=== PATIENT | male | born 1940 | race Caucasian/White ===

== ENCOUNTER 2017-04-05 12:23 | Emergency (ER) | payer MEDICARE, MEDICAID ==
[~2017-04-05 12:23] MED LIST: ALBU6.7H INH; CLON.1 PO; IPRAAER IN; METO100T9 PO; PRED20 PO; SYMB160A INH
[2017-04-05 12:25] VITALS: BP 145/75; PULSE 72; RESP 20; TEMP 97.7; O2SAT 98
--- NOTE | 2017-04-05 13:09 | PD ---
Physical Exam Date Seen by Provider: April 05, 2017 Time Seen by Provider: 13:02 Narrative 76 y/o male presents to the ED with complaints of lower abdominal pain with some increased pain in RLQ. Pain started last night with sharp pains. Has no fever, nausea, or fever. Denies urinary symptoms. Has been constipation. Now having Diarrhea this am. Has hx Prostate enlargement. Pain now 0. Hx COPD as well. V/S Stable Awaiting Bed Placement. Data Data Last Documented VS Vital Signs Date Time Temp Pulse Resp B/P Pulse Ox O2 Delivery O2 Flow Rate FiO2 04/05/17 12:25 97.7 72 20 145/75 98 Room Air [facility] Medical Record Reviewed: Yes Supervised Visit with GEREMIAS: Yes Condition: Stable Omid Yu April 05, 2017 13:09
== END 2017-04-05 13:10 | disposition left against medical advice (07) ==
LOC: NED 12:23
DX: R10.30 Lower abdominal pain, unspecified (principal); Z53.21 Procedure and treatment not carried out due to patient leaving prior to being seen by health care provider
CPT/HCPCS: 99281; 99283

== ENCOUNTER 2017-04-15 22:07 | Inpatient (IN) | payer MEDICARE, MEDICAID ==
[~2017-04-15] VITALS: Ht 165.1 cm; Wt 62.0 kg
[2017-04-15 22:09] VITALS: BP 212/104; PULSE 75; RESP 16; TEMP 98.8; O2SAT 97
[2017-04-15 22:28] VITALS: BP 235/95; PULSE 69; RESP 16; O2SAT 100
[2017-04-15 22:45] VITALS: BP 235/95; PULSE 64; RESP 20
[2017-04-15] MEDS ORDERED: SODIUM CHLORIDE 0.9% FLUSH 10 ML FLUSH IVF PRN (22:45)
--- NOTE | 2017-04-15 22:58 | RADRPT ---
EXAM DATE/TIME: 04/15/2017 22:47 [facility] COMPARISON: CHEST SINGLE AP, November 16, 2014, 18:37. INDICATIONS : Chest pain MEDICAL HISTORY : Chronic obstructive pulmonary disease. SURGICAL HISTORY : None. ENCOUNTER: Initial ACUITY: 1 day PAIN SCORE: 3/10 LOCATION: Bilateral chest FINDINGS: A single view of the chest demonstrates the lungs to be symmetrically aerated without evidence of mas s, infiltrate or effusion. The cardiomediastinal contours are unremarkable. Osseous structures are intact. CONCLUSION: Normal examination. Mild chronic obstructive lung disease Amor Taylor MD on April 15, 2017 at 22:56 Board Certified Radiologist. This report was verified electronically.
[2017-04-15 23:03] LABS: AUTOMATED NEUTROPHIL # 6.1 TH/MM3 (1.8-7.7); BASOPHIL # 0.1 TH/MM3 (0-0.2); BASOPHIL % 1.2 % (0.0-2.0); EOSINOPHIL # 0.2 TH/MM3 (0-0.4); EOSINOPHIL % 2.2 % (0.0-4.0); HEMATOCRIT 45.1 % (39.0-51.0); HEMO FLAGS DIFF FINAL; LYMPH % 15.9 % (9.0-44.0); LYMPHOCYTE # 1.4 TH/MM3 (1.0-4.8); MEAN CELL VOLUME 84.4 FL (80.0-100.0); MEAN CORPUSCULAR HGB CONC 34.3 % (32.0-36.0); MONO % 9.8 % (0.0-8.0); NEUT % 70.9 % (16.0-70.0); PLATELET COUNT 297 TH/MM3 (150-450); RED BLOOD COUNT 5.35 MIL/MM3 (4.50-5.90); RED CELL DISTRIBUTION WIDTH 16.4 % (11.6-17.2); WHITE BLOOD COUNT 8.6 TH/MM3 (4.0-11.0)
--- NOTE | 2017-04-15 23:04 | PD ---
HPI Chief Complaint: Chest Pain Time Seen by Provider: 22:24 Travel History International Travel<30 days: No Contact w/Intl Traveler<30days: No Traveled to known affect area: No History of Present Illness HPI 76yo M with PMH of HTN, AAA s/p repair presents to the ED with c/o left sided chest pain that radiates to mid upper back. States it is sharp. Denies any fever, cough, sob, focal weakness or numbness, n/v, abdominal pain. Former smoker. PFSH Past Medical History Anxiety: Yes Depression: Yes Cardiovascular Problems: Yes (htn) COPD: Yes Diminished Hearing: No Gastrointestinal Disorders: Yes Hiatal Hernia: Yes Hypertension: Yes Inguinal Hernia: Yes (2006) Neurologic: Yes (MEMORY DEFICITS) Psychiatric: Yes Respiratory: Yes (copd) Sleep Apnea: No Past Surgical History Surgical History: No Previous Surgery Abdominal Aneurysm Repair: Yes (2002 [facility]) Abdominal Surgery: Yes (RIGHT INGUINAL HERNIA REPAIR 2006. "abdominal anerysm repair 10 yrs ago") Appendectomy: Yes Body Medical Devices: MEMORY PROBLEMS Neurologic Surgery: No Tonsillectomy: Yes Other Surgery: Yes (EXCISION OF CYSTS LEFT SHOULDER) Social History Alcohol Use: Yes (rare) Tobacco Use: Yes Substance Use: No Allergies-Medications (Allergen,Severity, Reaction): Coded Allergies: No Known Allergies (Verified , 04/20/16) Reported Meds & Prescriptions Reported Meds & Active Scripts Active Norvasc (Amlodipine Besylate) 10 Mg Tab 10 Mg PO DAILY Combivent Respimat (Albuterol/Ipratropium) Respimat Aer 1 Inhalation IN QID 30 Days Symbicort (Budesonide/Formoterol Fumarate) 160 Mcg/4.5 Mcg Aer 1 Puff INH BID * SHAKE WELL BEFORE USE * Reported Catapres 0.1 mg (Clonidine HCl) 0.1 Mg Tab 1 Tab PO BID Review of Systems Except as stated in HPI: all other systems reviewed are Neg Physical Exam Narrative GENERAL: 76yo M not in distress. SKIN: Focused skin assessment warm/dry. HEAD: Atraumatic. Normocephalic. EYES: Pupils equal and round. No scleral icterus. No injection or drainage. ENT: No nasal bleeding or discharge. Mucous membranes pink and moist. NECK: Trachea midline. No JVD. CARDIOVASCULAR: Regular rate and rhythm. No murmur appreciated. RESPIRATORY: No accessory muscle use. Clear to auscultation. Breath sounds equal bilaterally. BACK: Bilateral paraspinal ttp thoracic spine, mid lower lumbar ttp. GASTROINTESTINAL: Abdomen soft, non-tender, nondistended. MUSCULOSKELETAL: No obvious deformities. No clubbing. No cyanosis. Trace lower ext edema edema. NEUROLOGICAL: Awake and alert. No obvious cranial nerve deficits. Motor grossly within normal limits. Normal speech. PSYCHIATRIC: Appropriate mood and affect; insight and judgment normal. Data Data Last Documented VS Vital Signs Date Time Temp Pulse Resp B/P Pulse Ox O2 Delivery O2 Flow Rate FiO2 04/16/17 01:00 58 16 189/92 94 Room Air 04/15/17 22:09 98.8 Orders Electrocardiogram (04/15/17 22:37) Basic Metabolic Panel (Bmp) (04/15/17 22:37) B-Type Natriuretic Peptide (04/15/17 22:37) Ckmb (Isoenzyme) Profile (04/15/17 22:37) Complete Blood Count With Diff (04/15/17 22:37) Magnesium (Mg) (04/15/17 22:37) Prothrombin Time / Inr (Pt) (04/15/17 22:37) Act Partial Throm Time (Ptt) (04/15/17 22:37) Troponin I (04/15/17 22:37) Chest, Single Ap (04/15/17 22:37) Ecg Monitoring (04/15/17 22:37) Bilateral Bp Monitoring (04/15/17 22:37) Iv Access Insert/Monitor (04/15/17 22:37) Oximetry (04/15/17 22:37) Oxygen Administration (04/15/17 22:37) Sodium Chloride 0.9% Flush (Ns Flush) (04/15/17 22:45) I-Stat Creatinine (04/15/17 22:37) Labetalol Inj (Trandate Inj) (04/15/17 23:15) I-Stat Profile (04/15/17 22:40) Ct Thorax/ Chest Wo Iv Contras (04/15/17 ) Ct Abd/Pel W/O Iv Contrast (04/15/17 ) CKMB (04/15/17 23:40) CKMB% (04/15/17 23:40) Clonidine (Catapres) (04/16/17 00:45) Admit Order (Ed Use Only) (04/16/17 00:58) Labs Laboratory Tests Test 04/15/17 04/15/17 22:40 23:40 Prothrombin Time 10.3 SEC Prothromb Time International 0.9 RATIO Ratio Activated Partial 23.9 SEC Thromboplast Time B-Type Natriuretic Peptide 109 PG/ML White Blood Count 8.6 TH/MM3 Red Blood Count 5.35 MIL/MM3 Hemoglobin 15.5 GM/DL Hematocrit 45.1 % Mean Corpuscular Volume 84.4 FL Mean Corpuscular Hemoglobin 29.0 PG Mean Corpuscular Hemoglobin 34.3 % Concent Red Cell Distribution Width 16.4 % Platelet Count 297 TH/MM3 Mean Platelet Volume 9.2 FL Neutrophils (%) (Auto) 70.9 % Lymphocytes (%) (Auto) 15.9 % Monocytes (%) (Auto) 9.8 % Eosinophils (%) (Auto) 2.2 % Basophils (%) (Auto) 1.2 % Neutrophils # (Auto) 6.1 TH/MM3 Lymphocytes # (Auto) 1.4 TH/MM3 Monocytes # (Auto) 0.8 TH/MM3 Eosinophils # (Auto) 0.2 TH/MM3 Basophils # (Auto) 0.1 TH/MM3 CBC Comment DIFF FINAL Differential Comment Bedside Hemoglobin 15.3 G/DL Bedside Hematocrit 45.0 % Bedside Sodium 137 MMOL/L Sodium Level 138 MEQ/L Bedside Potassium 4.0 MMOL/L Potassium Level 4.0 MEQ/L Bedside Chloride 104 MMOL/L Chloride Level 102 MEQ/L Carbon Dioxide Level 26.4 MEQ/L Anion Gap 10 MEQ/L Bedside Blood Urea Nitrogen 36 MG/DL Blood Urea Nitrogen 32 MG/DL Creatinine 2.02 MG/DL Bedside Creatinine 2.0 MG/DL Estimat Glomerular Filtration 32 ML/MIN Rate Bedside Glucose 110 MG/DL Random Glucose 113 MG/DL Calcium Level 8.7 MG/DL Magnesium Level 2.0 MG/DL Total Creatine Kinase 259 U/L Creatine Kinase MB 4.1 NG/ML Troponin I LESS THAN 0.02 NG/ML Lipase 199 U/L MDM Medical Decision Making Medical Screen Exam Complete: Yes Emergency Medical Condition: Yes Interpretation(s) EKG: NSR 62bpm. Normal axis. Mild ST depression V5. Differential Diagnosis Aortic dissection vs. ACS vs. pneumonia Narrative Course 76yo M with HTN and AAA s/p repair here with chest pain radiating to back concerning for aortic dissection. I obtained an i-stat and his creatinine is 2.0. I discussed with radiologist and if we do noncontrast, we can still see dissection and leak from aorta so will do noncontrast. BP is 235/95 and labetalol 20mg IV ordered. BP improved to 167/93. However, pt's blood pressure was again in the 200s systolic and clonidine 0.1mg PO given. Labs reviewed, no leukocytosis. H/H stable. BUN/creatinine elevated at 32/2.02. Troponin negative. BNP 109. CXR normal. CTabd/pelvis showed atherosclerotic disease. No dissection. There is a fluid filled loop of distended bowel of uncertain etiology that was an incidental finding. Pt has no nausea or vomiting. Last BM yesterday. Discussed with radiologist and states that this is not something to worry about. CT chest showed no dissection. 6mm lung nodule that needs follow up study in 6 months. Informed pt of this. Discussed with Dr. Grey and accepted to her service for uncontrolled HTN and r/o chest pain. Diagnosis Primary Impression: CHEST PAIN, UNSPECIFIED Additional Impression: Uncontrolled hypertension Admitting Information Admitting Physician Requests: Observation Scripts Amlodipine (Norvasc)10 Mg Tab10 Mg PO DAILY #30 TAB Ref 0 Prov:Nannette White MD 04/16/17 Keila Hickman DO April 15, 2017 23:04
[2017-04-15] MEDS ORDERED: LABETALOL HCL 100 MG/20 ML VIAL IV PUSH ONE (23:15)
[2017-04-15 23:19] LABS: INTERNATIONAL NORMALIZED RATIO 0.9 RATIO; PROTHROMBIN TIME - PATIENT 10.3 SEC (9.8-11.6)
[2017-04-15 23:23] VITALS: BP 186/94; PULSE 61; RESP 16; O2SAT 97
[2017-04-15 23:23] LABS: APTT (PATIENT) 23.9 SEC (24.3-30.1)
[2017-04-15 23:42] VITALS: BP 167/93; PULSE 61; RESP 16; O2SAT 96
[2017-04-16] VITALS (14 sets, daily range): BP systolic 151–189; BP diastolic 72–102; PULSE 58–88; RESP 16–18; TEMP 97.7–98; O2SAT 94–99
--- NOTE | 2017-04-16 00:04 | RADRPT ---
EXAM DATE/TIME: 04/15/2017 23:28 [facility] COMPARISON: No previous studies available for comparison. INDICATIONS : Chest pain radiating to back. RADIATION DOSE: 7.95 CTDIvol (mGy) ; Combined studies - Thorax/Abdomen/Pelvis MEDICAL HISTORY : Hypertension. Aneurysm, abdominal. Chronic obstructive pulmonary disease. Hiatal hernia. SURGICAL HISTORY : Abdominal aortic aneurysm repair. ENCOUNTER: Initial ACUITY: 1 day PAIN SCALE: 8/10 LOCATION: Bilateral chest TECHNIQUE: Volumetric scanning of the chest was performed. Using automated exposure control and adjustment of t he mA and/or kV according to patient size, radiation dose was kept as low as reasonably achievable to obtain optimal diagnostic quality images. FINDINGS: LUNGS: There is no consolidation or pneumothorax. No concerning pulmonary nodule is visualized other than r ounded 6 mm nodule right mid lung. There is diffuse emphysematous change. PLEURAE: There is no pleural thickening or pleural effusion. MEDIASTINUM: The ascending aorta measures 4.1 cm across . The descending aorta is normal in caliber. There is no evidence of dissection or acute hematoma . The heart and great vessels demonstrate no acute abnormal ity. There is no mediastinal or hilar lymphadenopathy. There is dense coronary atherosclerotic disea se AXILLAE: Within normal limits. No lymphadenopathy. MUSCULOSKELETAL: Within normal limits for patient age. Multiple healed rib fractures MISCELLANEOUS: The visualized upper abdominal organs demonstrate no acute abnormality. CONCLUSION: No evidence of acute dissection or hematoma. Diffuse emphysema throughout the lungs. 6 mm lung nodule suggest followup noncontrast study in 6 months.. Amor Taylor MD on April 15, 2017 at 23:58 Board Certified Radiologist. This report was verified electronically.
--- NOTE | 2017-04-16 00:11 | RADRPT ---
EXAM DATE/TIME: 04/15/2017 23:28 This report includes an Addendum and supersedes previous reports for this exam. [facility] COMPARISON: No previous studies available for comparison. INDICATIONS : Chest pain radiating to back. ORAL CONTRAST: No oral contrast ingested. RADIATION DOSE: 7.95 CTDIvol (mGy) ; Combined studies - Thorax/Abdomen/Pelvis MEDICAL HISTORY : Hypertension. Aneurysm, abdominal. Chronic obstructive pulmonary disease.Inguinal hernia. SURGICAL HISTORY : Abdominal aortic aneurysm repair. Inguinal hernia repair.Appendectomy. ENCOUNTER: Initial ACUITY: 1 day PAIN SCALE: 8/10 LOCATION: All quadrants. TECHNIQUE: Volumetric scanning of the abdomen and pelvis was performed. Using automated exposure control and ad justment of the mA and/or kV according to patient size, radiation dose was kept as low as reasonably achievable to obtain optimal diagnostic quality images. FINDINGS: LOWER LUNGS: The visualized lower lungs are clear. LIVER: Homogeneous density with 2 lesions consist with hepatic cysts. There is no dilation of the biliary t ree. Solitary calcified gallstone in the neck of the gallbladder. SPLEEN: Spleen is surgically absent. PANCREAS: Within normal limits. KIDNEYS: Some areas of cortical thinning right kidney. There is no mass, stone, or hydronephrosis other than numerous benign cysts. ADRENAL GLANDS: Within normal limits. VASCULAR: There is marked atherosclerotic disease without evidence of acute hematoma or dissection. BOWEL/MESENTERY: The stomach, small bowel, and colon demonstrate no acute abnormality. There is no free intraperitone al air or fluid. ABDOMINAL WALL: Within normal limits. RETROPERITONEUM: There is no lymphadenopathy. BLADDER: No wall thickening or mass. REPRODUCTIVE: Within normal limits. INGUINAL: There is no lymphadenopathy or hernia. MUSCULOSKELETAL: Within normal limits for patient age. CONCLUSION: Marked atherosclerotic disease or evidence of leak of the abdominal aorta or surrounding hemorrhage. Gallstone and numerous hepatic and renal cysts. Study was performed without IV contrast due to the el evated creatinine and low GFR. In the mid abdomen there is a fluid filled loop of distended bowel of uncertain etiology but no evidence of free air or free fluid seen. Amor Taylor MD on April 16, 2017 at 0:04 Board Certified Radiologist. This report was verified electronically. ADDENDUM: There is a typographical error within the conclusion. There is "marked atherosclerotic disease and no evidence of leak of the abdominal aorta or any surrounding hemorrhage" Amor Taylor MD on April 16, 2017 at 1:02 Board Certified Radiologist. This report was verified electronically.
[2017-04-16 00:21] LABS: I-STAT SODIUM 137 MMOL/L (138-146)
[2017-04-16 00:25] LABS: ANION GAP 10 MEQ/L (5-15); BICARBONATE 26.4 MEQ/L (21.0-32.0); BLOOD UREA NITROGEN 32 MG/DL (7-18); CHLORIDE 102 MEQ/L (98-107); GLOMERULAR FILTRATION RATE 32 ML/MIN (>89); SODIUM (NA) 138 MEQ/L (136-145)
[2017-04-16 00:29] LABS: CREATINE KINASE 259 U/L (39-308)
[2017-04-16 00:42] LABS: CKMB 4.1 NG/ML (0.5-3.6)
[2017-04-16] MEDS ORDERED: cloNIDine HCL 0.1 MG TAB PO ONE (00:45)
[2017-04-16] MEDS ORDERED: SODIUM CHLORIDE 0.9% FLUSH 10 ML FLUSH IV FLUSH PRN (01:00)
[2017-04-16] MEDS ORDERED: NALOXONE HCL 0.4 MG/ML AMP IV PRN (01:00)
[2017-04-16] MEDS: hydrALAZINE HCL 20 MG/ML VIAL IV PUSH PRN ×2 (02:22→09:23)
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
[2017-04-16] MEDS ORDERED: RESP: ALBUTEROL 2.5 MG/IPRATROPIUM 0.5 MG NEB (PRN) NEB (02:45)
[2017-04-16] MEDS: RESP: ALBUTEROL 2.5 MG/IPRATROPIUM 0.5 MG NEB (SCH) NEB ×2 (02:46→09:49)
[2017-04-16] MEDS ORDERED: SODIUM CHLORIDE 0.9% FLUSH 10 ML FLUSH IV FLUSH SCH (09:00)
[2017-04-16 10:35] LABS: CREATINE KINASE 196 U/L (39-308)
--- NOTE | 2017-04-16 12:14 | RADRPT ---
EXAM DATE/TIME: 04/16/2017 10:50 [facility] COMPARISON: No previous studies available for comparison. INDICATIONS : Abdominal pain. MEDICAL HISTORY : Chronic obstructive pulmonary disease. CVA. Hypertension. Abdominal aortic aneurysm. Hiatal herni a. Depression. Anxiety. SURGICAL HISTORY : Tonsillectomy. Appendectomy. Abdominal aortic aneurysm repair. Right inguinal hernia. ENCOUNTER: Initial ACUITY: 1 day PAIN SCORE: 6/10 LOCATION: Bilateral upper quadrant MEASUREMENTS: LIVER: 14.8 cm length COMMON DUCT: 5 mm RIGHT KIDNEY: 10.9 x 4.2 x 5.5 cm LEFT KIDNEY: 11.5 x 4.4 x 5.5 cm SPLEEN: not visualized. AORTA: 5.2cm maximal FINDINGS: Multiple hepatic cysts noted measuring up to 5.2 cm and 1.9 cm in the right lobe. Pancreas unremarkab le. 8mm gallstone present in gallbladder. Mild sonographic Pete's sign. No significant gallbladder wall thickening. Bilateral renal cysts present measuring up to 1.5 cm upper pole right kidney and 1.6 cm upper pole le ft kidney. No hydronephrosis. Kidneys mildly atrophic. Spleen not visualized. Distal abdominal aortic aneurysm measures up to about 3 cm in diameter and extending over a length of about 5 cm. CONCLUSION: 1. Multiple gallstones with mild tenderness over the right upper quadrant. No biliary ductal dilatati on. 2. Multiple hepatic and bilateral renal cysts. 3. 3 cm infrarenal abdominal aortic aneurysm. 4. Spleen absent. Berhane Hathaway MD on April 16, 2017 at 12:07 Board Certified Radiologist. This report was verified electronically.
[2017-04-16 14:11] LABS: CREATINE KINASE 187 U/L (39-308)
[2017-04-16] MEDS ORDERED: AMLO10 PO (14:25)
--- NOTE | 2017-04-16 14:27 | HHI.DS ---
Discharge Summary Admission Date April 16, 2017 at 02:03 Discharge Date: April 16, 2017 Admitting Diagnosis Chest pain (1) Atypical chest pain ICD Code: R07.89 Diagnosis: Principal (2) SOB (shortness of breath) ICD Code: R06.02 Diagnosis: Principal (3) History of AAA (abdominal aortic aneurysm) repair ICD Code: Z98.89 Diagnosis: Secondary (4) Abdominal pain ICD Code: R10.9 Diagnosis: Secondary (5) Headache ICD Code: R51 Diagnosis: Secondary (6) Lung mass ICD Code: R91.8 Diagnosis: Principal Procedures none Brief History - From Admission Written by Sandra Vicente, acting as scribe for Dr. Grey on 04/16/17 at 02: 30. This is a 76-year-old male patient with past medical history which includes HTN , COPD, CVA residual difficulty speaking, BPH, aortic aneurysm s/p repair 2001. Patient is currently homeless and living on the street for the past 3 days has multiple complaints and reports he has not been feeling well for a few weeks. Patient reports he has had midsternal chest pain described as both sharp and pressure-like in sensation, "like someone is sitting on my chest," for the past 2-3 days. Patient reports the chest pain is worse with coughing or palpation of chest. Patient reports the chest pain does not seem to be affected by exertion. Chest pain radiates through to the middle of the back. Patient has also had a cough for 2 weeks productive of yellow phlegm. He denies diaphoresis or night sweats. Patient also reports vomiting 2-3 times a day for the past 2 days possible coffee color patient reports he is unsure. Hemoglobin 15.5 on arrival with repeat of 15.3. Patient noted to be SOB even at rest is unable to talk in complete sentences due to his SOB. Patient also c/o diarrhea x 2 weeks, reports diarrhea about 3 times per day. Patient denies black tarry appearance or bright red blood in stool. Prior to the diarrhea patient was constipated. Patient denies headache, dysuria, hematuria CBC/BMP: 04/15/17 22404/15/17 2340 Significant Findings Laboratory Tests Test 04/15/17 04/15/17 04/16/17 04/16/17 22:40 23:40 09:32 13:30 Activated Partial 23.9 SEC Thromboplast Time (24.3-30.1) B-Type Natriuretic Peptide 109 PG/ML (0-100) Neutrophils (%) (Auto) 70.9 % (16.0-70.0) Monocytes (%) (Auto) 9.8 % (0.0-8.0) Bedside Sodium 137 MMOL/L (138-146) Bedside Blood Urea Nitrogen 36 MG/DL (8-26) Blood Urea Nitrogen 32 MG/DL (7-18) Creatinine 2.02 MG/DL (0.60-1.30) Bedside Creatinine 2.0 MG/DL (0.8-1.3) Estimat Glomerular Filtration 32 ML/MIN (>89) Rate Bedside Glucose 110 MG/DL (60-95) Random Glucose 113 MG/DL (74-106) Creatine Kinase MB 4.1 NG/ML (0.5-3.6) Troponin I LESS THAN 0.02 LESS THAN 0.02 LESS THAN 0.02 NG/ML NG/ML NG/ML (0.02-0.05) (0.02-0.05) (0.02-0.05) Imaging Last Impressions Abdomen Ultrasound 04/16/17 0000 Signed Impressions: Service Date/Time: Sunday, April 16, 2017 10:50 - CONCLUSION: 1. Multiple gallstones with mild tenderness over the right upper quadrant. No biliary ductal dilatation. 2. Multiple hepatic and bilateral renal cysts. 3. 3 cm infrarenal abdominal aortic aneurysm. 4. Spleen absent. Berhane Hathaway MD Chest X-Ray 04/15/172236 Signed Impressions: Service Date/Time: March 22:47 - CONCLUSION: Normal examination. Mild chronic obstructive lung disease Amor Taylor MD Chest CT 04/15/17 0000 Signed Impressions: Service Date/Time: March 23:28 - CONCLUSION: No evidence of acute dissection or hematoma. Diffuse emphysema throughout the lungs. 6 mm lung nodule suggest followup noncontrast study in 6 months.. Amor Taylor MD Abdomen/Pelvis CT 04/15/17 0000 Signed Impressions: Service Date/Time: March 23:28 - CONCLUSION: Marked atherosclerotic disease or evidence of leak of the abdominal aorta or surrounding hemorrhage. Gallstone and numerous hepatic and renal cysts. Study was performed without IV contrast due to the elevated creatinine and low GFR. In the mid abdomen there is a fluid filled loop of distended bowel of uncertain etiology but no evidence of free air or free fluid seen. Amor Taylor MD ADDENDUM: There is a typographical error within the conclusion. There is marked atherosclerotic disease and no evidence of leak of the abdominal aorta or any surrounding hemorrhage Amor Taylor MD PE at Discharge GENERAL:in NAD SKIN: Warm and dry. HEAD: Normocephalic. EYES: No scleral icterus. No injection or drainage. NECK: Supple, trachea midline. No JVD or lymphadenopathy. CARDIOVASCULAR: Regular rate and rhythm without murmurs, gallops, or rubs. RESPIRATORY: Breath sounds equal bilaterally. No accessory muscle use. GASTROINTESTINAL: Abdomen soft, mild RUQ pain to palpation. nondistended. normoactive BS. no peritoneal. NEURO: AAO X 3. CN 2-12 intact. 5/5 upper and lower ext strength. coordination intact and gait intact. sensation grossly intact. Pt update on day of discharge patient asking to eat and stated he is very hungry,. He was given lunch quickly and had no N/V or abdominal pain with PO intake. Patient stated still RUQ . Patient then stated he had a Headache and wanted medication. He stated ZELAYA is posterior and he had this ZELAYA before. Denied any visual changes, focal neurological deficit or N/V with ZELAYA. chest pain resolved. patient also stated he was homeless and will not get his money which is 1900 a month until the first. he stated he has nowhere to go and that the homeless retirement only give 1 day free but then after that its 10 dollars a day. patient asked to stay. Hospital Course This is a 76-year-old male patient with past medical history which includes HTN , COPD, CVA residual difficulty speaking, BPH, aortic aneurysm s/p repair 2001. Patient is currently homeless and living on the street for the past 3 days has multiple complaints and reports he has not been feeling well for a few weeks. Midsternal chest pain with radiation to the back. cough productive of yellow phlegm, vomiting, SOB even at rest is unable to talk in complete sentences due to his SOB, diarrhea x 2 weeks. Hypertensive urgency this is his baseline. he was given clonidine, IV hydralazine, IV Labetalol improved. continue with home clonidine and will add amlodipine. most likely probably uncontrol HTN due to compliance not hypertensive urgency. Chest pain- atypical with history of AAA repair and radiation to the back CXR reviewed and reveals: Normal examination. Mild chronic obstructive lung disease CT abdomen reviewed and reveals: (Addendum marked atherosclerotic disease and no evidence of leak of the abdominal aorta or any surrounding hemorrhage.) Gallstone with numerous hepatic and renal cysts. In the mid abdomen there was a fluid filled loop of distended bowel of uncertain etiology but no evidence of free air or free fluid seen CT chest reviewed and reveals:No evidence of acute dissection or hematoma. Diffuse emphysema throughout the lungs. 6 mm lung nodule suggest followup noncontrast study in 6 months Recommend followup noncontrast study in 6 months Initial EKG revels: NSR 62bpm. ST depression V5. troponin negative and symptoms resolved quickly, no events on telemetry. Lung nodule -patient educated on lung nodule and told he will need a repeat CT scan by his PCP. he stated okay that he will get that done at the [facility]. abdominal pain CT abdomen reviewed and reveals: (Addendum marked atherosclerotic disease and no evidence of leak of the abdominal aorta or any surrounding hemorrhage.) Gallstone with numerous hepatic and renal cysts. In the mid abdomen there was a fluid filled loop of distended bowel of uncertain etiology but no evidence of free air or free fluid seen US showed gallstone initially had NV but that resolved quickly. patient tolerated a regular diet easily. no signs of infection and relative asymptomatic. able to tolerate PO intake so no indication for surgery. COPD with productive cough and SOB duonebs scheduled and as needed Diarrhea patient c/o diarrhea but no diarrhea while hospitalized. Pt Condition on Discharge: Good Discharge Disposition: Discharge Home Discharge Time: <= 30 minutes Discharge Instructions DIET: Follow Instructions for: Heart Healthy Diet Activities you can perform: Regular-No Restrictions Follow up Referrals: PCP Follow-up - 1 Week New Medications: Amlodipine (Norvasc) 10 Mg Tab 10 MG PO DAILY hypertension #30 Ref 0 TAB Continued Medications: Budesonide-Formoterol Fumarate (Symbicort) 160 Mcg/4.5 Mcg Aer 1 PUFF INH BID * SHAKE WELL BEFORE USE * #1 BOX Clonidine 0.1 mg (Catapres 0.1 mg) 0.1 Mg Tab 1 TAB PO BID TAB Ipratropium-Albuterol (Combivent Respimat) Respimat Aer 1 INHALATION IN QID Days 30 AER Nannette White MD April 16, 2017 14:27
--- NOTE | 2017-04-16 14:27 | HHI.DCPOC ---
Discharge Care Plan Diagnosis: (1) Uncontrolled hypertension (2) Atypical chest pain Goals to Promote Your Health * To prevent worsening of your condition and complications * To maintain your health at the optimal level Directions to Meet Your Goals Take your medications as prescribed Follow your dietary instruction Follow activity as directed Keep your appointments as scheduled Take your immunizations and boosters as scheduled If your symptoms worsen call your PCP, if no PCP go to Urgent Care Center or Emergency Room Smoking is Dangerous to Your Health. Avoid second hand smoke Call the 24-hour hour crisis hotline for domestic abuse at Nannette White MD April 16, 2017 14:27
[2017-04-16] MEDS ORDERED: ACETAMINOPHEN 325 MG TAB PO PRN (14:45)
--- NOTE | 2017-04-16 15:55 | EKG ---
Date Performed: 04/15/2017 Time Performed: 22:53:09 PTAGE: 76 years EKG: Sinus rhythm Left ventricular hypertrophy NONSPECIFIC T-WAVE ABNORMALITY When compared to previous tracing, bailey es of LVH are present And nonspecific. T wave changes are noted in the inferior leads. ABNORMAL ECG PREVIOUS TRACING : 06/18/2015 22.16.18 DOCTOR: Taz Desir Interpretating Date/Time 04/16/2017 15:54:15
--- NOTE | 2017-04-17 16:25 | EKG ---
Date Performed: 04/16/2017 Time Performed: 07:16:40 PTAGE: 76 years EKG: Sinus rhythm Anterolateral ST-T changes are nonspecific Compared to prior tracing 04/15/2017 the QRS voltage sligh tly left anterolaterally,but still increased. Borderline ECG PREVIOUS TRACING : 04/15/2017 22.53 DOCTOR: Rolly Quintero Interpretating Date/Time 04/17/2017 16:24:01
== END 2017-04-16 15:25 | disposition home or self-care (01) | DRG 313 ==
LOC: NEPE 22:07 → NEDA 04-16 01:00 → OBSVTOIN 04-16 02:03 → HCIN 04-16 03:25 → HCIS 04-16 04:16
PROVIDERS: ADMIT Family Medicine; ATTEND Family Medicine
DX: R07.89 Other chest pain (principal); K76.89 Other specified diseases of liver; J44.9 Chronic obstructive pulmonary disease, unspecified; I16.0 Hypertensive urgency; I69.328 Other speech and language deficits following cerebral infarction; I10 Essential (primary) hypertension; F41.9 Anxiety disorder, unspecified; F32.9 Major depressive disorder, single episode, unspecified; K44.9 Diaphragmatic hernia without obstruction or gangrene; R91.1 Solitary pulmonary nodule; Z59.0 Homelessness; R19.7 Diarrhea, unspecified; N40.0 Benign prostatic hyperplasia without lower urinary tract symptoms; F17.210 Nicotine dependence, cigarettes, uncomplicated; K80.20 Calculus of gallbladder without cholecystitis without obstruction; N28.1 Cyst of kidney, acquired; Z86.79 Personal history of other diseases of the circulatory system; R51 Headache
CPT/HCPCS: 71010; 71250; 74176; 76700; 80048; 82435; 82550; 82552; 82565; 82947; 83690; 83735; 83880; 84132; 84295; 84484; 84520; 85025; 85610; 85730; 93005; 94640; 94664; 96374; J0360

== ENCOUNTER 2017-04-20 23:12 | Emergency (ER) | payer OTHER, MEDICARE, MEDICAID ==
[~2017-04-20] VITALS: Ht 172.7 cm; Wt 58.2 kg
[~2017-04-20 23:12] MED LIST changes: -ALBU6.7H INH; +AMLO10 PO; -METO100T9 PO; -PRED20 PO
[2017-04-20 23:16] VITALS: BP 150/87; PULSE 73; RESP 16; TEMP 98.2; O2SAT 99
[2017-04-20] MEDS ORDERED: TAMS5CAP PO (23:22)
[2017-04-20] MEDS ORDERED: SYMB80AE INH (23:22)
[2017-04-20] MEDS ORDERED: CLON0.1T PO (23:22)
[2017-04-20] MEDS ORDERED: SODIUM CHLORIDE 0.9% FLUSH 10 ML FLUSH IVF PRN (23:45)
--- NOTE | 2017-04-21 00:12 | PD ---
HPI Chief Complaint: Respiratory Symptoms Time Seen by Provider: 23:38 Travel History International Travel<30 days: No Contact w/Intl Traveler<30days: No Traveled to known affect area: No History of Present Illness HPI The patient is a 76 year old male who presents to the [facility] emergency department with a history of shortness of breath with chest tightness that began at 7PM this evening. He reports that he has a history of COPD. He reports that he tried using a Symbicort inhaler, however it did not help. He denies having a rescue inhaler. He reports also having pain between his shoulder blades with this chest tightness. He continues to smoke 1 ppd. He has had vomiting with coughing hard occasionally. He has also had diarrhea for the last two weeks approximately one time a day that is watery and dark brown. It resolved during his recent admission to the hospital through April 16. However, his symptoms of diarrhea recurred when he left the hospital. He is drinking two shots of alcohol 3 times per week. On my arrival to the room the patient is noted to be sleeping soundly. The patient was awakened provide this history. The patient denies any recent fevers, worsening cough or congestion, neck pain, urinary symptoms, or neurologic symptoms. [facility] Past Medical History Narrative Medical The patient's past medical history is significant for depression and anxiety, AAA- repaired, hypertension, COPD, 2 CVAs with residual weakness reported in his arms, BPH. Anxiety: Yes Depression: Yes Cancer: No Cardiovascular Problems: Yes (htn) Chest Pain: Yes (THIS ADMISSION CHEST AND BACK) COPD: Yes Cerebrovascular Accident: Yes ("TWO MINOR STROKES") Diminished Hearing: No Endocrine: No Gastrointestinal Disorders: Yes Hiatal Hernia: Yes Hypertension: Yes Immune Disorder: No Inguinal Hernia: Yes (2006) Neurologic: Yes (MEMORY DEFICITS) Psychiatric: Yes Reproductive: No Respiratory: Yes (copd) Sleep Apnea: No Past Surgical History Narrative Surgical The patient's past surgical history is significant for AAA, hernia repair. Abdominal Aneurysm Repair: Yes ([facility]) Abdominal Surgery: Yes (RIGHT INGUINAL HERNIA REPAIR 2006. "abdominal anerysm repair 10 yrs ago") Appendectomy: Yes Body Medical Devices: MEMORY PROBLEMS Neurologic Surgery: No Tonsillectomy: Yes Other Surgery: Yes (EXCISION OF CYSTS LEFT SHOULDER) Social History Alcohol Use: Yes (2 shots 3 x per week) Tobacco Use: Yes (1 ppd) Substance Use: No Allergies-Medications (Allergen,Severity, Reaction): Coded Allergies: No Known Allergies (Verified , 04/20/17) Reported Meds & Prescriptions Reported Meds & Active Scripts Active Prednisone 20 Mg Tab 20 Mg PO BID Proair Respiclick Inh (Albuterol Sulfate) 90 Mcg/Act Aerp 2 Puff INH Q4-6H PRN Norvasc (Amlodipine Besylate) 10 Mg Tab 10 Mg PO DAILY Reported Flomax (Tamsulosin HCl) 0.4 Mg Cap 0.4 Mg PO HS Symbicort Inh (Budesonide/Formoterol Fumarate) 80-4.5 Mcg/Act Aero 2 Puff INH Q12HR Clonidine (Clonidine HCl) 0.1 Mg Tab 0.1 Mg PO BID Review of Systems Except as stated in HPI: all other systems reviewed are Neg General / Constitutional: No: Fever Eyes: No: Visual changes HENT: No: Headaches, Neck Stiffness, Neck Pain Cardiovascular: Positive: Chest Pain or Discomfort Respiratory: Positive: Shortness of Breath Gastrointestinal: Positive: Diarrhea, Changes in Bowel Habits, No: Nausea, Vomiting, Abdominal Pain, Indigestion, Loss of Appetite Genitourinary: No: Dysuria Musculoskeletal: No: Pain Skin: No Rash Neurologic: No: Weakness, Focal Abnormalities, Change in Mentation, Slurred Speech, Sensory Disturbance Psychiatric: No: Depression Endocrine: No: Polydipsia Hematologic/Lymphatic: No: Easy Bruising Physical Exam Narrative General: The patient is well-developed well-nourished male in no acute distress. Head and Neck exam: Head is normocephalic atraumatic. Eyes: EOMI, pupils are equal round and reactive to light. Nose: Midline septum with pink mucous membranes Mouth: Dentition unremarkable. Moist mucus membranes. Posterior oropharynx is not erythematous. No tonsillar hypertrophy. Uvula midline. Airway patent. Neck: No palpable lymphadenopathy. No nuchal rigidity. No thyromegaly. Cardiovascular: Regular rate and rhythm without murmurs, gallops, or rubs. No pulse deficit to the extremities. Lungs: Soft expiratory wheezes audible posteriorly. No prolonged expiratory phase of breathing. No tripoding, no accessory muscle use. No paroxysmal abdominal breathing. No conversational dyspnea. Abdomen: Soft, without tenderness to palpation in all 4 quadrants of the abdomen. No guarding, rebound, or rigidity. Normal bowel sounds are audible. Extremities: No clubbing, cyanosis, or edema. 2+ pulses in all 4 extremities. No calf tenderness on palpation. Back: No costovertebral angle tenderness to palpation. Neurologic Exam: Grossly nonfocal. Skin Exam: No rash noted. Intact skin that is warm and dry. Data Data Last Documented VS Vital Signs Date Time Temp Pulse Resp B/P Pulse Ox O2 Delivery O2 Flow Rate FiO2 04/21/17 03:06 93 179/90 04/21/17 02:36 99 Room Air 04/20/17 23:16 98.2 16 Orders Electrocardiogram (04/20/17 23:40) Complete Blood Count With Diff (04/20/17 23:40) Comprehensive Metabolic Panel (04/20/17 23:40) Creatine Kinase (Cpk) (04/20/17 23:40) Ckmb (Isoenzyme) Profile (04/20/17 23:40) Troponin I (04/20/17 23:40) B-Type Natriuretic Peptide (04/20/17 23:40) Prothrombin Time / Inr (Pt) (04/20/17 23:40) Act Partial Throm Time (Ptt) (04/20/17 23:40) Lipase (04/20/17 23:40) Urinalysis - C+S If Indicated (04/20/17 23:40) Magnesium (Mg) (04/20/17 23:40) Chest, Single Ap (04/20/17 23:40) Ecg Monitoring (04/20/17 23:40) Bilateral Bp Monitoring (04/20/17 23:40) Iv Access Insert/Monitor (04/20/17 23:40) Oximetry (04/20/17 23:40) Oxygen Administration (04/20/17 23:40) Sodium Chloride 0.9% Flush (Ns Flush) (04/20/17 23:45) Albuterol-Ipratropium Neb (Duoneb Neb) (04/21/17 00:15) Sodium Chlorid 0.9% 500 Ml Inj (Ns 500 M (04/21/17 00:15) CKMB (04/20/17 23:50) CKMB% (04/20/17 23:50) Labs Laboratory Tests Test 04/20/17 04/21/17 23:50 01:55 White Blood Count 9.4 TH/MM3 Red Blood Count 4.78 MIL/MM3 Hemoglobin 13.3 GM/DL Hematocrit 41.2 % Mean Corpuscular Volume 86.2 FL Mean Corpuscular Hemoglobin 27.9 PG Mean Corpuscular Hemoglobin 32.4 % Concent Red Cell Distribution Width 16.4 % Platelet Count 237 TH/MM3 Mean Platelet Volume 9.0 FL Neutrophils (%) (Auto) 71.1 % Lymphocytes (%) (Auto) 13.3 % Monocytes (%) (Auto) 10.8 % Eosinophils (%) (Auto) 2.6 % Basophils (%) (Auto) 2.2 % Neutrophils # (Auto) 6.7 TH/MM3 Lymphocytes # (Auto) 1.3 TH/MM3 Monocytes # (Auto) 1.0 TH/MM3 Eosinophils # (Auto) 0.2 TH/MM3 Basophils # (Auto) 0.2 TH/MM3 CBC Comment DIFF FINAL Differential Comment Prothrombin Time 10.2 SEC Prothromb Time International 0.9 RATIO Ratio Activated Partial 28.7 SEC Thromboplast Time Sodium Level 135 MEQ/L Potassium Level 4.2 MEQ/L Chloride Level 101 MEQ/L Carbon Dioxide Level 23.7 MEQ/L Anion Gap 10 MEQ/L Blood Urea Nitrogen 29 MG/DL Creatinine 1.87 MG/DL Estimat Glomerular Filtration 35 ML/MIN Rate Random Glucose 91 MG/DL Calcium Level 8.5 MG/DL Magnesium Level 2.0 MG/DL Total Bilirubin 0.4 MG/DL Aspartate Amino Transf 25 U/L (AST/SGOT) Alanine Aminotransferase 16 U/L (ALT/SGPT) Alkaline Phosphatase 93 U/L Total Creatine Kinase 215 U/L Creatine Kinase MB 3.6 NG/ML Troponin I LESS THAN 0.02 NG/ML B-Type Natriuretic Peptide 34 PG/ML Total Protein 6.4 GM/DL Albumin 3.0 GM/DL Lipase 212 U/L Urine Color YELLOW Urine Turbidity CLEAR Urine pH 5.5 Urine Specific [place] 1.008 Urine Protein 100 mg/dL Urine Glucose (UA) NEG mg/dL Urine Ketones NEG mg/dL Urine Occult Blood SMALL Urine Nitrite NEG Urine Bilirubin NEG Urine Urobilinogen LESS THAN 2.0 MG/DL Urine Leukocyte Esterase NEG Urine RBC LESS THAN 1 /hpf Urine WBC 1 /hpf Urine Bacteria RARE /hpf Urine Mucus FEW /lpf Microscopic Urinalysis Comment CULT NOT INDICATED MDM Medical Decision Making Medical Screen Exam Complete: Yes Emergency Medical Condition: Yes Medical Record Reviewed: Yes Differential Diagnosis COPD exacerbation, versus pneumothorax, versus pneumonia, versus acute coronary syndrome Narrative Course During the course of the patients emergency department visit, the patients history, examination, and differential diagnosis were reviewed with the patient. The patient had IV access obtained and blood work sent for analysis. The patient was placed on a cardiac monitor technician with oximetry and blood pressure monitoring. The patient had an EKG done on arrival. The patient's EKG reveals sinus rhythm heart rate of 66, borderline left axis deviation, QRS duration is 98 ms, QTC 440 ms. The patient has nonspecific T-wave abnormalities. No acute ST segment elevation. T waves are noted to be inverted in aVL. The patient was initially provided normal saline bolus of 500 mL 1, a DuoNeb 1. The patients laboratory studies were reviewed and remarkable for a white count of 9.4, hemoglobin 13.3, platelets 237 with 71.1 neutrophils, monocytes 10.8, CMP is remarkable for sodium of 135, BUN 29, creatinine 1.87, CPK 215, troponin I less than 0.02, BNP is 34, lipase 212, PT PTT within normal limits. Urinalysis shows 100 protein, small occult blood, rare bacteria, culture not indicated. Radiology studies were reviewed and remarkable for a chest x-ray that showed no acute abnormality, emphysematous changes are noted. The patient reports that he does not have a rescue inhaler. The patient was given a prescription for pro-air inhaler. The patient was also given a prescription for prednisone. Regarding the patient's abdominal pain and diarrhea, the patient had a CT scan of the abdomen and pelvis done during his recent hospitalization that showed no acute abnormality. I suspect that the diarrhea is dietary related as a result in the hospital and then recurred once he was discharged. The patient is resting comfortably and feels better, is alert and in no distress. The patients results and examination findings were discussed with the patient. The repeat examination is unremarkable and benign. The history, exam, diagnostic testing, and current condition do not suggest any significant pathology to warrant further testing, continued ED treatment, admission, or surgical evaluation at this point. The vital signs have been stable. The patient does not have uncontrollable pain, intractable vomiting, or other significant symptoms. The patient's condition is stable and appropriate for discharge. The patient will pursue further outpatient evaluation with a primary care physician or other designated or consulting physician as indicated in the discharge instructions. The patient expressed understanding and was agreeable with this plan. Diagnosis Primary Impression: COPD with exacerbation Additional Impression: Diarrhea Qualified Code: R19.7 - Diarrhea, unspecified type Referrals: Primary Care Physician 2 days Patient Instructions: COPD (Chronic Obstructive Pulmonary Disease) (ED), General Instructions Additional Instructions: Avoid alcohol and tobacco products. Med/Other Pt SpecificInfo: Prescription(s) given Scripts Prednisone 20 Mg Tab20 Mg PO BID #10 TAB Ref 0 Prov:Opal Gomez MD 04/21/17 Albuterol Powder Inh (Proair Respiclick Inh)90 Mcg/Act Aerp2 Puff INH Q4-6H PRN (SHORTNESS OF BREATH) #1 INHALER Ref 0 Prov:Opal Gomez MD 04/21/17 Disposition: 01 DISCHARGE HOME Condition: Stable Opal Gomez MD April 21, 2017 00:12
[2017-04-21] MEDS ORDERED: SODIUM CHLORID 0.9% 500 ML INJ 500 ML IV ONE (00:15)
[2017-04-21] MEDS ORDERED: ALBU1AER5 INH (00:15)
[2017-04-21] MEDS ORDERED: RESP: ALBUTEROL 2.5 MG/IPRATROPIUM 0.5 MG NEB (SCH) NEB ONE (00:15)
[2017-04-21 00:24] LABS: AUTOMATED NEUTROPHIL # 6.7 TH/MM3 (1.8-7.7); BASOPHIL # 0.2 TH/MM3 (0-0.2); BASOPHIL % 2.2 % (0.0-2.0); EOSINOPHIL # 0.2 TH/MM3 (0-0.4); EOSINOPHIL % 2.6 % (0.0-4.0); HEMATOCRIT 41.2 % (39.0-51.0); HEMO FLAGS DIFF FINAL; LYMPH % 13.3 % (9.0-44.0); LYMPHOCYTE # 1.3 TH/MM3 (1.0-4.8); MEAN CELL VOLUME 86.2 FL (80.0-100.0); MEAN CORPUSCULAR HEMOGLOBIN 27.9 PG (27.0-34.0); MEAN CORPUSCULAR HGB CONC 32.4 % (32.0-36.0); MONO % 10.8 % (0.0-8.0); NEUT % 71.1 % (16.0-70.0); PLATELET COUNT 237 TH/MM3 (150-450); RED BLOOD COUNT 4.78 MIL/MM3 (4.50-5.90); RED CELL DISTRIBUTION WIDTH 16.4 % (11.6-17.2); WHITE BLOOD COUNT 9.4 TH/MM3 (4.0-11.0)
[2017-04-21 00:37] LABS: APTT (PATIENT) 28.7 SEC (24.3-30.1); INTERNATIONAL NORMALIZED RATIO 0.9 RATIO; PROTHROMBIN TIME - PATIENT 10.2 SEC (9.8-11.6)
[2017-04-21 00:45] LABS: ALKALINE PHOSPHATASE 93 U/L (45-117); ALT (GPT) 16 U/L (12-78); ANION GAP 10 MEQ/L (5-15); AST (GOT) 25 U/L (15-37); BICARBONATE 23.7 MEQ/L (21.0-32.0); BLOOD UREA NITROGEN 29 MG/DL (7-18); CHLORIDE 101 MEQ/L (98-107); CREATINE KINASE 215 U/L (39-308); GLOMERULAR FILTRATION RATE 35 ML/MIN (>89); SODIUM (NA) 135 MEQ/L (136-145); TOTAL BILIRUBIN ADULT 0.4 MG/DL (0.2-1.0)
[2017-04-21 01:32] LABS: POTASSIUM 4.2 MEQ/L (3.5-5.1)
[2017-04-21 02:07] LABS: BACTERIA, URINE RARE /hpf; BLOOD, URINE SMALL (NEG); COMMENT (UR) CULT NOT INDICATED; CULTURE IF INDICATED CULT NOT INDICATED; GLUCOSE,URINE NEG (NEG); KETONE, URINE NEG (NEG); MUCUS URINE FEW /lpf (OCC); NITRITE,URINE NEG (NEG); PH, URINE 5.5 (5.0-8.5); URINE COLOR YELLOW (YELLW/STRAW)
[2017-04-21 02:11] LABS: CKMB 3.6 NG/ML (0.5-3.6)
[2017-04-21] MEDS ORDERED: PRED20 PO (02:30)
[2017-04-21 03:06] VITALS: BP 179/90; PULSE 93
--- NOTE | 2017-04-21 08:25 | RADRPT ---
EXAM DATE/TIME: 04/21/2017 00:03 [facility] COMPARISON: CHEST SINGLE AP, November 16, 2014, 18:37. CHEST SINGLE AP, April 15, 2017, 22:47. INDICATIONS : Chest pain. MEDICAL HISTORY : Hypertension. Aneurysm, abdominal. Chronic obstructive pulmonary disease.Inguinal hernia SURGICAL HISTORY : Abdominal aortic aneurysm repair. Inguinal hernia repair.Appendectomy ENCOUNTER: Initial ACUITY: 1 day PAIN SCORE: 7/10 LOCATION: Bilateral chest FINDINGS: Lungs are hyperinflated but focally clear. No pleural effusion is suspected. Cardiac contours are sta ble and satisfactory for technique and projection. CONCLUSION: Emphysema. No acute disease. Jimbo Perkins MD on April 21, 2017 at 0:10 Board Certified Radiologist. This report was verified electronically.
--- NOTE | 2017-04-21 09:07 | EKG ---
Date Performed: 04/20/2017 Time Performed: 23:24:16 PTAGE: 76 years EKG: Sinus rhythm BORDERLINE LEFT AXIS DEVIATION MODERATE VOLTAGE CRITERIA FOR LVH, CONSIDER NORMAL VARIANT NONSPECIFI C T-WAVE ABNORMALITY BORDERLINE ECG PREVIOUS TRACING : 04/16/2017 07.16 DOCTOR: Amor Schuler Interpretating Date/Time 04/21/2017 09:06:44
== END 2017-04-21 03:12 | disposition home or self-care (01) ==
LOC: NEPE 23:12
DX: J44.1 Chronic obstructive pulmonary disease with (acute) exacerbation (principal); R19.7 Diarrhea, unspecified; R07.89 Other chest pain; M54.6 Pain in thoracic spine; R11.10 Vomiting, unspecified; R94.31 Abnormal electrocardiogram [ECG] [EKG]; I10 Essential (primary) hypertension; F17.200 Nicotine dependence, unspecified, uncomplicated; Z86.79 Personal history of other diseases of the circulatory system; Z86.59 Personal history of other mental and behavioral disorders; Z87.09 Personal history of other diseases of the respiratory system; Z87.19 Personal history of other diseases of the digestive system; Z86.69 Personal history of other diseases of the nervous system and sense organs
CPT/HCPCS: 71010; 80053; 81001; 82550; 82552; 83690; 83735; 83880; 84484; 85025; 85610; 85730; 93005; 94664; 96360; 99285; J7040

== ENCOUNTER 2017-05-10 14:42 | Emergency (ER) | payer OTHER, MEDICARE, MEDICAID ==
[~2017-05-10] VITALS: Ht 175.3 cm; Wt 60.0 kg
[~2017-05-10 14:42] MED LIST changes: +ALBU1AER5 INH; -CLON.1 PO; +CLON0.1T PO; -IPRAAER IN; +PRED20 PO; -SYMB160A INH; +SYMB80AE INH; +TAMS5CAP PO
[2017-05-10 14:44] VITALS: BP 182/98; PULSE 77; RESP 24; TEMP 97.6; O2SAT 98
--- NOTE | 2017-05-10 16:19 | PD ---
HPI Chief Complaint: Respiratory Symptoms Time Seen by Provider: 16:14 Travel History International Travel<30 days: No Contact w/Intl Traveler<30days: No Traveled to known affect area: No History of Present Illness HPI 76-year-old male with long history of smoking and COPD. Patient presents with 3 day history of increasing shortness of breath, and productive cough with brown phlegm. Patient uses Symbicort, but has no nebulizer at home or metered-dose inhaler. Patient states he has had prednisone in the past for his lungs. States no significant chills or fever but states he "doesn't feel very well". He denies chest pain or pressure. He denies significant abdominal complaints. He has no known drug allergies. PFSH Past Medical History Anxiety: Yes Depression: Yes Cancer: No Cardiovascular Problems: Yes (htn) Chest Pain: Yes (THIS ADMISSION CHEST AND BACK) COPD: Yes Cerebrovascular Accident: Yes Diminished Hearing: No Endocrine: No Gastrointestinal Disorders: Yes Hiatal Hernia: Yes Hypertension: Yes Immune Disorder: No Inguinal Hernia: Yes (2006) Neurologic: Yes (MEMORY DEFICITS) Psychiatric: Yes Reproductive: No Respiratory: Yes Sleep Apnea: No Past Surgical History Abdominal Aneurysm Repair: Yes (2002 [facility]) Abdominal Surgery: Yes (RIGHT INGUINAL HERNIA REPAIR 2006. "abdominal anerysm repair 10 yrs ago") Appendectomy: Yes Body Medical Devices: MEMORY PROBLEMS Neurologic Surgery: No Tonsillectomy: Yes Other Surgery: Yes (EXCISION OF CYSTS LEFT SHOULDER) Social History Alcohol Use: Yes (2 shots 3 x per week) Tobacco Use: Yes (1 ppd) Substance Use: No Allergies-Medications (Allergen,Severity, Reaction): Coded Allergies: No Known Allergies (Verified , 05/10/17) Reported Meds & Prescriptions Reported Meds & Active Scripts Active Prednisone 20 Mg Tab 20 Mg PO BID Norvasc (Amlodipine Besylate) 10 Mg Tab 10 Mg PO DAILY Reported Symbicort Inh (Budesonide/Formoterol Fumarate) 80-4.5 Mcg/Act Aero 2 Puff INH Q12HR Clonidine (Clonidine HCl) 0.1 Mg Tab 0.1 Mg PO BID Review of Systems Except as stated in HPI: all other systems reviewed are Neg General / Constitutional: No: Fever, Chills Eyes: No: Visual changes HENT: No: Headaches, Vertigo, Lightheadedness, Sore Throat, Rhinitis, Rhinorrhea, Congestion, Nosebleed, Neck Stiffness, Neck Pain, Masses, Gingival Bleeding, Dental Difficulties, Ear Discharge, Earache Cardiovascular: No: Chest Pain or Discomfort Respiratory: Positive: Cough, Shortness of Breath, Wheezing, No: Sneezing, Orthopnea, Hemoptysis, Stridor, Night Sweats, Pleuritic Pain Gastrointestinal: No: Nausea, Vomiting, Diarrhea, Abdominal Pain Genitourinary: No: Dysuria Musculoskeletal: No: Pain Skin: No Rash Neurologic: No: Weakness Psychiatric: No: Depression Endocrine: No: Polydipsia Hematologic/Lymphatic: No: Easy Bruising Physical Exam Narrative GENERAL: Patient appears in no acute distress. Able to speak in full sentences. SKIN: Warm and dry. Normal color. Normal turgor. HEAD: Atraumatic. Normocephalic. EYES: Pupils equal and round. No scleral icterus. No injection or drainage. ENT: No nasal bleeding or discharge. Mucous membranes pink and moist. TMs are clear bilaterally. Pharynx appears normal. Airway is patent. NECK: Trachea midline. No JVD. Supple nontender. CARDIOVASCULAR: Regular rate and rhythm. No murmurs gallops or rubs. RESPIRATORY: No accessory muscle use. Diffuse wheezes throughout to auscultation. No rales or rhonchi. Breath sounds equal bilaterally. MUSCULOSKELETAL: Extremities without clubbing, cyanosis, or edema. No obvious deformities. NEUROLOGICAL: Awake and alert. No obvious cranial nerve deficits. Motor grossly within normal limits. Five out of 5 muscle strength in the arms and legs. Normal speech. PSYCHIATRIC: Appropriate mood and affect; insight and judgment normal. Data Data Last Documented VS Vital Signs Date Time Temp Pulse Resp B/P Pulse Ox O2 Delivery O2 Flow Rate FiO2 05/10/17 17:54 85 16 193/107 95 Room Air 05/10/17 14:44 97.6 Orders Complete Blood Count With Diff (05/10/17 16:20) Comprehensive Metabolic Panel (05/10/17 16:20) Urinalysis - C+S If Indicated (05/10/17 16:20) Iv Access Insert/Monitor (05/10/17 16:20) Electrocardiogram (05/10/17 16:20) Ecg Monitoring (05/10/17 16:20) Oximetry (05/10/17 16:20) Oxygen Administration (05/10/17 16:20) Chest, Pa & Lat (05/10/17 16:20) Sodium Chloride 0.9% Flush (Ns Flush) (05/10/17 16:30) Albuterol-Ipratropium Neb (Duoneb Neb) (05/10/17 16:30) Prednisone (Deltasone) (05/10/17 16:30) Clonidine (Catapres) (05/10/17 17:30) Sodium Chlorid 0.9% 500 Ml Inj (Ns 500 M (05/10/17 18:15) Ceftriaxone Inj (Rocephin Inj) (05/10/17 18:06) Azithromycin Inj (Zithromax Inj) (05/10/17 18:06) Labs Laboratory Tests Test 05/10/17 17:08 White Blood Count 5.9 TH/MM3 Red Blood Count 5.48 MIL/MM3 Hemoglobin 15.2 GM/DL Hematocrit 47.4 % Mean Corpuscular Volume 86.6 FL Mean Corpuscular Hemoglobin 27.7 PG Mean Corpuscular Hemoglobin 32.0 % Concent Red Cell Distribution Width 16.2 % Platelet Count 327 TH/MM3 Mean Platelet Volume 8.8 FL Neutrophils (%) (Auto) 84.8 % Lymphocytes (%) (Auto) 10.3 % Monocytes (%) (Auto) 4.4 % Eosinophils (%) (Auto) 0.0 % Basophils (%) (Auto) 0.5 % Neutrophils # (Auto) 5.0 TH/MM3 Lymphocytes # (Auto) 0.6 TH/MM3 Monocytes # (Auto) 0.3 TH/MM3 Eosinophils # (Auto) 0.0 TH/MM3 Basophils # (Auto) 0.0 TH/MM3 CBC Comment DIFF FINAL Differential Comment Sodium Level 138 MEQ/L Potassium Level 4.4 MEQ/L Chloride Level 102 MEQ/L Carbon Dioxide Level 25.5 MEQ/L Anion Gap 11 MEQ/L Blood Urea Nitrogen 40 MG/DL Creatinine 2.50 MG/DL Estimat Glomerular Filtration 25 ML/MIN Rate Random Glucose 129 MG/DL Calcium Level 9.2 MG/DL Total Bilirubin 0.4 MG/DL Aspartate Amino Transf 14 U/L (AST/SGOT) Alanine Aminotransferase 16 U/L (ALT/SGPT) Alkaline Phosphatase 121 U/L Total Protein 7.8 GM/DL Albumin 3.6 GM/DL [facility] Medical Decision Making Medical Screen Exam Complete: Yes Emergency Medical Condition: Yes Medical Record Reviewed: Yes Differential Diagnosis Pneumonia. COPD with acute exacerbation. Lung cancer. Narrative Course Patient is medically stable at time of exam. EKG is ordered showing sinus rhythm with moderate T wave abnormality. This is suggestive of lateral ischemia. Chest x-ray is ordered as well. Labs ordered including CBC, CMP, and urinalysis.. Patient is given a DuoNeb 3. Patient is given prednisone 60 mg by mouth. Patient is noted to have mild hypertension and he is given his clonidine dose of 0.1 mg by mouth. Patient states improvement in respiratory symptoms after his DuoNeb and prednisone. CBC is unremarkable. CMP is remarkable for increased creatinine of 2.5 which is up from 1.8 previously 3 weeks ago. BUN is 40. Otherwise no significant findings. Urinalysis is still pending at this time. Call is placed for the hospitalist for admission due to the patient's increased creatinine. IV access was not able to be obtained. Patient was discussed with Dr. Manzanares who agreed to admit the patient to OBS 1825 hrs. patient requests to leave AMA. Diagnosis Primary Impression: COPD with exacerbation Additional Impressions: Uncontrolled hypertension Acute renal insufficiency Disposition: 07 AGAINST MEDICAL ADVICE Condition: Stable Omid Yu May 10, 2017 16:19 Admitting Physician Requests: Observation Condition: Stable Omid Yu May 10, 2017 16:19
[2017-05-10] MEDS: RESP: ALBUTEROL 2.5 MG/IPRATROPIUM 0.5 MG NEB (SCH) INH (16:29)
[2017-05-10] MEDS ORDERED: predniSONE 20 MG TAB PO ONE (16:30)
[2017-05-10] MEDS ORDERED: SODIUM CHLORIDE 0.9% FLUSH 10 ML FLUSH IVF PRN (16:30)
[2017-05-10 17:15] VITALS: BP 197/94; PULSE 79; RESP 16; O2SAT 97
[2017-05-10] MEDS ORDERED: cloNIDine HCL 0.1 MG TAB PO ONE (17:30)
[2017-05-10 17:42] LABS: BASOPHIL % 0.5 % (0.0-2.0); HEMATOCRIT 47.4 % (39.0-51.0); HEMO FLAGS DIFF FINAL; LYMPH % 10.3 % (9.0-44.0); LYMPHOCYTE # 0.6 TH/MM3 (1.0-4.8); MEAN CELL VOLUME 86.6 FL (80.0-100.0); MEAN CORPUSCULAR HEMOGLOBIN 27.7 PG (27.0-34.0); MONO % 4.4 % (0.0-8.0); NEUT % 84.8 % (16.0-70.0); PLATELET COUNT 327 TH/MM3 (150-450); RED BLOOD COUNT 5.48 MIL/MM3 (4.50-5.90); RED CELL DISTRIBUTION WIDTH 16.2 % (11.6-17.2); WHITE BLOOD COUNT 5.9 TH/MM3 (4.0-11.0)
[2017-05-10 17:54] VITALS: BP 193/107; PULSE 85; RESP 16; O2SAT 95
[2017-05-10 17:57] LABS: ANION GAP 11 MEQ/L (5-15); AST (GOT) 14 U/L (15-37); BICARBONATE 25.5 MEQ/L (21.0-32.0); BLOOD UREA NITROGEN 40 MG/DL (7-18); CHLORIDE 102 MEQ/L (98-107); GLOMERULAR FILTRATION RATE 25 ML/MIN (>89); POTASSIUM 4.4 MEQ/L (3.5-5.1); SODIUM (NA) 138 MEQ/L (136-145)
--- NOTE | 2017-05-10 18:00 | RADRPT ---
EXAM DATE/TIME: 05/10/2017 16:57 [facility] COMPARISON: CHEST PA & LAT, October 15, 2014, 5:11. INDICATIONS : Congestion and shortness of breath. MEDICAL HISTORY : Chronic obstructive pulmonary disease. SURGICAL HISTORY : Abdominal aortic aneurysm repair. ENCOUNTER: Initial ACUITY: 3 days PAIN SCORE: 0/10 LOCATION: Bilateral chest FINDINGS: The heart size is normal. The lungs are hyperinflated. No focal consolidation is seen. No effusion is seen. The bones appear somewhat osteopenic. CONCLUSION: Hyperinflated lungs consistent with chronic obstructive disease. Jimbo Bass MD on May 10, 2017 at 17:45 Board Certified Radiologist. This report was verified electronically.
[2017-05-10 18:01] LABS: ALKALINE PHOSPHATASE 121 U/L (45-117); ALT (GPT) 16 U/L (12-78); TOTAL BILIRUBIN ADULT 0.4 MG/DL (0.2-1.0)
[2017-05-10] MEDS ORDERED: AZITHROMYCIN INJ 500 MG in SODIUM CHLOR 0.9% 250 ML INJ 250 ML IV STA (18:06)
[2017-05-10] MEDS ORDERED: cefTRIAXone INJ 1,000 MG in SODIUM CHLORIDE 0.9% INJ 100 ML IV STA (18:06)
[2017-05-10] MEDS ORDERED: SODIUM CHLORID 0.9% 500 ML INJ 500 ML IV ONE (18:15)
[2017-05-10] MEDS ORDERED: SODIUM CHLOR 0.9% 1000 ML INJ 1,000 ML IV SCH (18:20)
--- NOTE | 2017-05-10 18:29 | HHI.PR ---
Addendum to Inpatient Note Additional Information I was called to admit Mr. Rehman for COPD exacerbation. I just placed all the admission orders and discussed with ED provider. However, before patient was seen by our service, patient decided to leave AMA. Discussed with ED provider. If patient changes his mind, we are available to help. Shahzad Manzanares DO May 10, 2017 18:29
[2017-05-10] MEDS ORDERED: ACETAMINOPHEN 325 MG TAB PO PRN (18:30)
[2017-05-10] MEDS ORDERED: BISACODYL 10 MG SUPP RECTAL PRN (18:30)
[2017-05-10] MEDS ORDERED: ONDANSETRON HCL 4 MG/2 ML VIAL IVP PRN (18:30)
[2017-05-10] MEDS ORDERED: SENNOSIDES 8.6 MG TAB PO PRN (18:30)
[2017-05-10] MEDS ORDERED: SODIUM CHLORIDE 0.9% FLUSH 10 ML FLUSH IV FLUSH PRN (18:30)
[2017-05-10] MEDS ORDERED: LACTULOSE SYRUP 20 GM/30 ML CUP PO PRN (18:30)
[2017-05-10] MEDS ORDERED: HEPARIN SODIUM - SQ 10,000 UNITS/ML VIAL SQ SCH (18:30)
[2017-05-10] MEDS ORDERED: MAGNESIUM HYDROXIDE SUSP 30 ML CUP PO PRN (18:30)
[2017-05-10] MEDS ORDERED: LEVOFLOXACIN 750 MG TAB PO ONE (18:30)
[2017-05-10] MEDS ORDERED: NALOXONE HCL 0.4 MG/ML AMP IV PRN (18:30)
[2017-05-10] MEDS ORDERED: RESP: ALBUTEROL 2.5 MG/IPRATROPIUM 0.5 MG NEB (PRN) NEB (18:30)
[2017-05-10] MEDS ORDERED: LEVOFLOXACIN 750 MG TAB PO SCH (18:30)
[2017-05-10] MEDS ORDERED: RESP: ALBUTEROL 2.5 MG/IPRATROPIUM 0.5 MG NEB (SCH) NEB (20:00)
[2017-05-10] MEDS ORDERED: BUDESONIDE-FORMOTEROL 160/4.5 MCG INHALER INH SCH (21:00)
[2017-05-10] MEDS ORDERED: DOCUSATE SODIUM 50 MG/SENNA 8.6 MG TAB PO SCH (21:00)
[2017-05-10] MEDS ORDERED: SODIUM CHLORIDE 0.9% FLUSH 10 ML FLUSH IV FLUSH SCH (21:00)
[2017-05-11] MEDS ORDERED: predniSONE 50 MG TAB PO SCH (09:00)
--- NOTE | 2017-05-11 16:47 | EKG ---
Date Performed: 05/10/2017 Time Performed: 17:18:28 PTAGE: 76 years EKG: Sinus rhythm VOLTAGE CRITERIA FOR LVH MODERATE T-WAVE ABNORMALITY, CONSIDER LATERAL ISCHEMIA Since previous adan ng, no significant change noted ABNORMAL ECG PREVIOUS TRACING : 04/20/2017 23.24 DOCTOR: Lori Patel Interpretating Date/Time 05/11/2017 17:22:41
== END 2017-05-10 18:40 | disposition left against medical advice (07) ==
LOC: NEPD 14:42
DX: J44.1 Chronic obstructive pulmonary disease with (acute) exacerbation (principal); J45.901 Unspecified asthma with (acute) exacerbation; I10 Essential (primary) hypertension; N28.9 Disorder of kidney and ureter, unspecified; F17.210 Nicotine dependence, cigarettes, uncomplicated; R94.31 Abnormal electrocardiogram [ECG] [EKG]
CPT/HCPCS: 71020; 80053; 85025; 93005; 94640; 94664; 99285; J7512

== ENCOUNTER 2017-05-10 19:43 | Observation (INO) | payer OTHER, MEDICARE, MEDICAID ==
[~2017-05-10] VITALS: Ht 175.3 cm; Wt 60.0 kg
[2017-05-10 19:45] VITALS: BP 192/97; PULSE 95; RESP 16; TEMP 98.5; O2SAT 96
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
[2017-05-10 22:00] VITALS: BP 147/79; PULSE 89; RESP 16; O2SAT 96
[2017-05-10] MEDS ORDERED: SODIUM CHLOR 0.9% 1000 ML INJ 1,000 ML IV ONE (22:00)
[2017-05-10] MEDS: RESP: ALBUTEROL 2.5 MG/3 ML NEB (SCH) INH (22:09)
[2017-05-10] MEDS ORDERED: NALOXONE HCL 0.4 MG/ML AMP IV PRN (23:00)
[2017-05-10] MEDS ORDERED: SODIUM CHLORIDE 0.9% FLUSH 10 ML FLUSH IV FLUSH PRN (23:00)
[2017-05-10] MEDS ORDERED: RESP: ALBUTEROL 2.5 MG/IPRATROPIUM 0.5 MG NEB (PRN) NEB (23:15)
[2017-05-10 23:20] VITALS: O2SAT 97
[2017-05-11 01:00] VITALS: BP 152/81; PULSE 86; RESP 17; O2SAT 95
[2017-05-11 02:35] VITALS: BP 178/90; PULSE 78; RESP 18; TEMP 98.4; O2SAT 98
[2017-05-11 04:21] VITALS: BP 151/68; PULSE 65; PULSE 66; RESP 16; TEMP 98.1; O2SAT 94
[2017-05-11] MEDS: RESP: ALBUTEROL 2.5 MG/IPRATROPIUM 0.5 MG NEB (SCH) NEB ×2 (07:40→14:00)
[2017-05-11 07:46] VITALS: O2SAT 98
--- NOTE | 2017-05-11 08:45 | HHI.HP ---
[facility] Service [facility] Primary Care Physician [facility] Admission Diagnosis copd exacerbation, acute renal insufficiency Diagnoses: Chief Complaint: coughing Travel History International Travel<30 Days: No Contact w/Intl Traveler <30 Da: No Traveled to Known Affected Are: No History of Present Illness Written by RODNEY Summers acting as scribe for [Mariann] on 05/11/17 at 08: 40. This note was transcribed by scribe RODNEY Summers. I, Dr. Yarely Waite personally performed the history, physical exam, and medical decision making; and confirmed the accuracy of the information in the transcribed note. Authenticated by Dr. Yarely Waite on 05/11/17 at 08:40. 76 y/o male with a history of COPD, HTN, Depression and anxiety presented to the ED with complaints of shortness of breath. He has been out of his COPD Meds for 1 week. He has been having increased sob, and productive cough with brown phlegm for the past week. 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 Denies any fever, chills, chest pain, or nausea. He was seen yesterday in the ED at 17:30 but he signed out AMA, because he wanted to smoke. He returned at 22:00. Chest x ray showed hyperinflated lungs consistent with chronic obstructive disease. Review of Systems Constitutional: DENIES: Fever, Chills Respiratory: COMPLAINS OF: Cough, Sputum production, Shortness of breath Cardiovascular: DENIES: Chest pain, Lower Extremity Edema Gastrointestinal: DENIES: Constipation, Diarrhea, Nausea, Vomiting Musculoskeletal: DENIES: Back pain, Neck pain Integumentary: DENIES: Rash Hematologic/lymphatic: DENIES: Lymphadenopathy Immunologic/allergic: DENIES: Urticaria Neurologic: DENIES: Headache Past Family Social History Past Medical History COPD HTN Depression Anxiety Past Surgical History Inguinal hernia repair AAA repair Reported Medications Reported Meds & Active Scripts Active Prednisone 20 Mg Tab 20 Mg PO BID Norvasc (Amlodipine Besylate) 10 Mg Tab 10 Mg PO DAILY Reported Symbicort Inh (Budesonide/Formoterol Fumarate) 80-4.5 Mcg/Act Aero 2 Puff INH Q12HR Clonidine (Clonidine HCl) 0.1 Mg Tab 0.1 Mg PO BID Allergies: Coded Allergies: No Known Allergies (Verified , 05/10/17) Active Ordered Medications Current Medications Medications (Trade) Dose Ordered Sig/Tawana Route Start Time Stop Time Status Last Admin (NS Flush) 2 ml UNSCH PRN IV FLUSH 05/10/17 23:00 (NS Flush) 2 ml BID IV FLUSH 05/11/17 09:00 (Narcan Inj) 0.4 mg UNSCH PRN IV 05/10/17 23:00 (Norvasc) 10 mg DAILY PO 05/11/17 09:00 (Symbicort 80-4.5 Mcg Inh) 2 puff Q12HR INH 05/11/17 09:00 (Catapres) 0.1 mg BID PO 05/11/17 09:00 Family History Dad: cancer, unsure what kind Social History Tobacco use: 1 PPD since age 14 Alcohol use: 1/2 pint a week of vodka Illicit drug use: Denies Physical Exam Vital Signs Vital Signs Date Time Temp Pulse Resp B/P Pulse Ox O2 Delivery O2 Flow Rate FiO2 05/11/17 07:46 98 21 05/11/17 04:21 65 05/11/17 04:21 98.1 66 16 151/68 94 05/11/17 02:35 98.4 78 18 178/90 98 05/11/17 01:00 86 17 152/81 95 05/10/17 23:20 97 05/10/17 22:00 89 16 147/79 96 05/10/17 20:09 16 05/10/17 19:45 98.5 95 16 192/97 96 Physical Exam GENERAL: This is a well-nourished, Patient with productive cough. SKIN: No rashes, ecchymoses or lesions. Cool and dry. HEAD: Atraumatic. Normocephalic. EYES: Pupils equal round and reactive. Extraocular motions intact. No scleral icterus. No injection or drainage. ENT: Nose without bleeding, purulent drainage or septal hematoma. Airway patent. NECK: Trachea midline. No JVD or lymphadenopathy. CARDIOVASCULAR: Regular rate and rhythm without murmurs, gallops, or rubs. RESPIRATORY: Diminished breath sounds bilaterally. No wheezes, rales, or rhonchi. GASTROINTESTINAL: Abdomen soft, non-tender, nondistended. No hepato-splenomegaly , or palpable masses. No guarding. MUSCULOSKELETAL: Extremities without clubbing, cyanosis, or edema. No joint tenderness, effusion, or edema noted. No calf tenderness. NEUROLOGICAL: Awake and alert. Motor and sensory grossly within normal limits. Normal speech. Assessment and Plan Problem List: (1) COPD with exacerbation ICD Code: J44.1 Status: Acute (2) Tobacco abuse ICD Code: Z72.0 Status: Chronic (3) HTN (hypertension) ICD Code: I10 Status: Chronic (4) Acute renal insufficiency ICD Code: N28.9 Status: Acute Assessment and Plan 76 y/o male with a history of COPD, HTN, Depression and anxiety presented to the ED with complaints of shortness of breath. He has been out of his COPD Meds for 1 week. COPD with exacerbation Chest x ray shows hyperinflation with chronic obstructive disease -Cont home medication Symbicort -Duonebs scheduled and prn AIDE on CKD, creatine 2.5, baseline 1.8, suspect mild dehydration -1L bolus given in ED -BMP pending -Encourage fluids, will order IVF if needed HTN, chronic -Restart home medications Norvasc -Monitor vitals Tobacco abuse, chronic -Encouraged to quit -Patient denies nicotine patch because he states it doesn't work -Ativan PO for anxiety DVT prophylaxis: Heparin Discussed Condition With Patient and RN Raiza Feldman May 11, 2017 08:44 Yarely Waite MD May 11, 2017 11:16
[2017-05-11] MEDS ORDERED: cloNIDine HCL 0.1 MG TAB PO SCH (09:00)
[2017-05-11] MEDS ORDERED: SODIUM CHLORIDE 0.9% FLUSH 10 ML FLUSH IV FLUSH SCH (09:00)
[2017-05-11] MEDS ORDERED: BUDESONIDE-FORMOTEROL 80/4.5 MCG INHALER INH SCH (09:00)
[2017-05-11] MEDS ORDERED: ONDANSETRON HCL 4 MG/2 ML VIAL IVP PRN (09:30)
[2017-05-11] MEDS ORDERED: HEPARIN SODIUM - SQ 10,000 UNITS/ML VIAL SQ SCH (09:30)
[2017-05-11] MEDS ORDERED: LORazepam 0.5 MG TAB PO PRN (09:30)
[2017-05-11] MEDS ORDERED: BISACODYL 10 MG SUPP RECTAL PRN (09:30)
[2017-05-11] MEDS ORDERED: SENNOSIDES 8.6 MG TAB PO PRN (09:30)
== END 2017-05-11 15:12 | disposition left against medical advice (07) ==
LOC: NEPE 19:43 → NEDA 22:57 → NEPHCDU 05-11 01:21
PROVIDERS: ADMIT Hospitalist; ATTEND Hospitalist
DX: J44.1 Chronic obstructive pulmonary disease with (acute) exacerbation (principal); I12.9 Hypertensive chronic kidney disease with stage 1 through stage 4 chronic kidney disease, or unspecified chronic kidney disease; N18.9 Chronic kidney disease, unspecified; N28.9 Disorder of kidney and ureter, unspecified; F41.9 Anxiety disorder, unspecified; F32.9 Major depressive disorder, single episode, unspecified; F17.200 Nicotine dependence, unspecified, uncomplicated; Z86.73 Personal history of transient ischemic attack (TIA), and cerebral infarction without residual deficits; Z86.79 Personal history of other diseases of the circulatory system; Z79.51 Long term (current) use of inhaled steroids
CPT/HCPCS: 94640; 94664; 99285; G0378; J7030; J7613

== ENCOUNTER 2017-06-08 14:41 | Emergency (ER) | payer OTHER, MEDICARE, MEDICAID ==
[~2017-06-08] VITALS: Ht 175.3 cm; Wt 60.0 kg
[~2017-06-08 14:41] MED LIST changes: -ALBU1AER5 INH; -TAMS5CAP PO
[2017-06-08 14:42] VITALS: BP 179/95; PULSE 82; TEMP 98.5; O2SAT 97
[2017-06-08] MEDS ORDERED: VENTAER INH (16:46)
[2017-06-08] MEDS ORDERED: SYMB80AE INH (16:46)
--- NOTE | 2017-06-08 16:46 | PD ---
HPI Chief Complaint: medication refill Time Seen by Provider: 16:24 Travel History International Travel<30 days: No Contact w/Intl Traveler<30days: No Traveled to known affect area: No History of Present Illness HPI 76yo M with PMH of COPD presents to the ED with request of refill for his symbicort. States that he has been using his symbicort when he feels sob and when he went back to the [place], they wont refill his medication. Denies any current sob, chest pain, fever, n/v, abdominal pain, urinary complaints, weakness or numbness. PFSH Past Medical History Asthma: Yes ("A LITTLE" PER PT) Blood Disorders: No Anxiety: Yes Depression: Yes Cancer: No Cardiovascular Problems: Yes (htn) Chemotherapy: No Chest Pain: Yes (THIS ADMISSION CHEST AND BACK) COPD: Yes Cerebrovascular Accident: Yes Diabetes: No Diminished Hearing: No Endocrine: No Gastrointestinal Disorders: Yes Genitourinary: No Hiatal Hernia: Yes Hypertension: Yes Immune Disorder: No Inguinal Hernia: Yes (2006) Neurologic: Yes (MEMORY DEFICITS) Psychiatric: Yes Reproductive: No Respiratory: Yes Radiation Therapy: No Sleep Apnea: No Tetanus Vaccination: < 5 Years Influenza Vaccination: Yes Past Surgical History Abdominal Aneurysm Repair: Yes (2002 [facility]) Abdominal Surgery: Yes (RIGHT INGUINAL HERNIA REPAIR 2006. "abdominal anerysm repair 10 yrs ago") Appendectomy: Yes Body Medical Devices: MEMORY PROBLEMS Neurologic Surgery: No Tonsillectomy: Yes Other Surgery: Yes (EXCISION OF CYSTS LEFT SHOULDER, [facility] 2001) Social History Alcohol Use: Yes (2 shots 3 x per week) Tobacco Use: Yes (1 ppd) Substance Use: No Allergies-Medications (Allergen,Severity, Reaction): Coded Allergies: No Known Allergies (Verified , 06/08/17) Reported Meds & Prescriptions Reported Meds & Active Scripts Active Reported Symbicort Inh (Budesonide/Formoterol Fumarate) 80-4.5 Mcg/Act Aero 2 Puff INH Q12HR Clonidine (Clonidine HCl) 0.1 Mg Tab 0.1 Mg PO BID Review of Systems Except as stated in HPI: all other systems reviewed are Neg Physical Exam Narrative GENERAL: 76yo M not in distress. SKIN: Focused skin assessment warm/dry. HEAD: Atraumatic. Normocephalic. CARDIOVASCULAR: Regular rate and rhythm. No murmur appreciated. RESPIRATORY: No accessory muscle use. Clear to auscultation. Breath sounds equal bilaterally. GASTROINTESTINAL: Abdomen soft, +TTP RUQ. No rebound tenderness or guarding. MUSCULOSKELETAL: No obvious deformities. No clubbing. No cyanosis. No edema. NEUROLOGICAL: Awake and alert. No obvious cranial nerve deficits. Motor grossly within normal limits. Normal speech. PSYCHIATRIC: Appropriate mood and affect; insight and judgment normal. Data Data Last Documented VS Vital Signs Date Time Temp Pulse Resp B/P Pulse Ox O2 Delivery O2 Flow Rate FiO2 06/08/17 16:33 54 18 99 Room Air 06/08/17 14:42 98.5 179/95 MDM Medical Decision Making Medical Screen Exam Complete: Yes Emergency Medical Condition: Yes Differential Diagnosis Chronic COPD vs. cholecystitis vs. colitis vs. pancreatitis Narrative Course 76yo M presents to the ED requesting refill for his symbicort. Pt has been using it as an rescue inhaler and it has ran out. Pt has been educated on the proper use of symbicort in the ED and will be provided with an addition prescription for ventolin. Pt is not wheezing and saturating at 99% on RA. Pt appears comfortable but has distinct tenderness on abdominal exam. Pt is refusing all blood work or further imaging or work up for this abdominal pain and he states he always has this and it's not that bad. AMA: The risks of leaving against medical advice without further evaluation treatment were discussed with the patient. These risks include cardiac dysfunction, cardiac dysrhythmia, possible heart attack, possible stroke or . The patient indicated understanding of these risks and appeared to have the capacity to make this decision. Diagnosis Primary Impression: COPD (chronic obstructive pulmonary disease) Qualified Code: J44.9 - Chronic obstructive pulmonary disease, unspecified COPD type Patient Instructions: General Instructions Departure Forms: Tests/Procedures Additional Instructions: Please follow up with your PMD in 1-2 days. Return to the ED immediately if your symptoms worsen. Med/Other Pt SpecificInfo: Prescription(s) given Scripts Albuterol 18 GM Inh (Ventolin Hfa 18 GM Inh)90 Mcg/Act Aer2 Puff INH Q4H PRN ( SHORTNESS OF BREATH) #1 INHALER Ref 0 Prov:Keila Hickman DO 06/08/17 Budesonide-Formoterol Inh (Symbicort Inh)80-4.5 Mcg/Act Aero2 Puff INH Q12HR # 1 INHALER Ref 0 Prov:Keila Hickman DO 06/08/17 Disposition: 07 AGAINST MEDICAL ADVICE Condition: Stable Keila Hickman DO Jun 08, 2017 16:46
== END 2017-06-08 17:30 | disposition left against medical advice (07) ==
LOC: NEPD 14:41
DX: J44.9 Chronic obstructive pulmonary disease, unspecified (principal); R10.11 Right upper quadrant pain; I10 Essential (primary) hypertension; F17.200 Nicotine dependence, unspecified, uncomplicated; Z87.09 Personal history of other diseases of the respiratory system; Z86.59 Personal history of other mental and behavioral disorders; Z86.79 Personal history of other diseases of the circulatory system; Z87.19 Personal history of other diseases of the digestive system; Z86.69 Personal history of other diseases of the nervous system and sense organs; Z53.29 Procedure and treatment not carried out because of patient's decision for other reasons
CPT/HCPCS: 99281

== ENCOUNTER 2017-06-18 17:21 | Emergency (ER) | payer OTHER, MEDICARE, MEDICAID ==
[~2017-06-18] VITALS: Ht 175.3 cm; Wt 60.5 kg
[~2017-06-18 17:21] MED LIST changes: -AMLO10 PO; -PRED20 PO; +VENTAER INH
[2017-06-18 17:24] VITALS: BP 215/106; PULSE 82; RESP 24; TEMP 98.5; O2SAT 95
--- NOTE | 2017-06-18 17:34 | PD ---
Physical Exam Date Seen by Provider: Jun 18, 2017 Time Seen by Provider: 17:32 Narrative 76 yo male that presents to the ED for evaluation of SOB and cough. Has had this for some time. History of COPD and was seen recently for COPD exacerbation. Not better. Cough is severe and productive. No pain. No recent travel. No sick contacts. Vitals are stable in triage. Awaiting bed placement. Data Data Last Documented VS Vital Signs Date Time Temp Pulse Resp B/P Pulse Ox O2 Delivery O2 Flow Rate FiO2 06/18/17 17:24 98.5 82 24 215/106 95 Room Air [facility] Medical Record Reviewed: Yes Supervised Visit with GEREMIAS: Anthony Castillo Jun 18, 2017 17:34
[2017-06-18] MEDS ORDERED: SODIUM CHLORIDE 0.9% FLUSH 10 ML FLUSH IVF PRN (18:00)
[2017-06-18] MEDS ORDERED: methylPREDNISolone SOD SUCC 125 MG/2 ML VIAL IVP ONE (18:00)
--- NOTE | 2017-06-18 18:02 | PD ---
HPI Chief Complaint: Respiratory Symptoms Time Seen by Provider: 17:59 Travel History International Travel<30 days: No Contact w/Intl Traveler<30days: No Traveled to known affect area: No History of Present Illness HPI 76-year-old male presents to the emergency department for evaluation of worsening shortness of breath over the past 2 days with productive cough. He reports chest pain with coughing. He denies any fevers. Patient denies any abdominal pain. No nausea, vomiting, diarrhea. Patient does have history of COPD, hypertension. He states he is not on oxygen at home. He is currently on Symbicort, clonidine, albuterol inhaler. Patient denies any recent surgery or travel. No history DVT or PE. No hemoptysis. No leg edema. Patient is a current tobacco user. PFSH Past Medical History Asthma: Yes ("A LITTLE" PER PT) Blood Disorders: No Anxiety: Yes Depression: Yes Cancer: No Cardiovascular Problems: Yes Chemotherapy: No Chest Pain: Yes (THIS ADMISSION CHEST AND BACK) COPD: Yes Cerebrovascular Accident: Yes Diabetes: No Diminished Hearing: No Endocrine: No Gastrointestinal Disorders: Yes Genitourinary: No Hiatal Hernia: Yes Hypertension: Yes Immune Disorder: No Inguinal Hernia: Yes (2006) Neurologic: Yes (MEMORY DEFICITS) Psychiatric: Yes Reproductive: No Respiratory: Yes Radiation Therapy: No Sleep Apnea: No Past Surgical History Abdominal Aneurysm Repair: Yes (2002 [facility]) Abdominal Surgery: Yes (RIGHT INGUINAL HERNIA REPAIR 2006. "abdominal anerysm repair 10 yrs ago") Appendectomy: Yes Body Medical Devices: MEMORY PROBLEMS Neurologic Surgery: No Tonsillectomy: Yes Other Surgery: Yes (EXCISION OF CYSTS LEFT SHOULDER, AAA 2001) Social History Alcohol Use: Yes (2 shots 3 x per week) Tobacco Use: Yes (1 ppd) Substance Use: No Allergies-Medications (Allergen,Severity, Reaction): Coded Allergies: No Known Allergies (Verified , 06/18/17) Reported Meds & Prescriptions Reported Meds & Active Scripts Active Ventolin Hfa 18 GM Inh (Albuterol Sulfate) 90 Mcg/Act Aer 2 Puff INH Q4H PRN Symbicort Inh (Budesonide/Formoterol Fumarate) 80-4.5 Mcg/Act Aero 2 Puff INH Q12HR Reported Clonidine (Clonidine HCl) 0.1 Mg Tab 0.1 Mg PO BID Review of Systems Except as stated in HPI: all other systems reviewed are Neg Physical Exam Narrative GENERAL: Well-nourished, well-developed elderly male patient, afebrile. SKIN: Focused skin assessment warm/dry. HEAD: Normocephalic. EYES: No scleral icterus. No injection or drainage. NECK: Supple, trachea midline. No JVD or lymphadenopathy. CARDIOVASCULAR: Regular rate and rhythm without murmurs, gallops, or rubs. RESPIRATORY: Breath sounds equal bilaterally. No accessory muscle use. Lungs sounds diminished throughout. Dry cough noted. GASTROINTESTINAL: Abdomen soft, non-tender, nondistended. MUSCULOSKELETAL: No cyanosis, or edema. BACK: Nontender without obvious deformity. No CVA tenderness. Data Data Last Documented VS Vital Signs Date Time Temp Pulse Resp B/P Pulse Ox O2 Delivery O2 Flow Rate FiO2 06/18/17 19:21 81 20 165/88 94 Room Air 06/18/17 17:24 98.5 Orders Complete Blood Count With Diff (06/18/17 17:58) Basic Metabolic Panel (Bmp) (06/18/17 17:58) B-Type Natriuretic Peptide (06/18/17 17:58) Act Partial Throm Time (Ptt) (06/18/17 17:58) Prothrombin Time / Inr (Pt) (06/18/17 17:58) Magnesium (Mg) (06/18/17 17:58) Ckmb (Isoenzyme) Profile (06/18/17 17:58) Troponin I (06/18/17 17:58) Iv Access Insert/Monitor (06/18/17 17:58) Electrocardiogram (06/18/17 17:58) Ecg Monitoring (06/18/17 17:58) Oximetry (06/18/17 17:58) Oxygen Administration (06/18/17 17:58) Chest, Single Ap (06/18/17 17:58) Sodium Chloride 0.9% Flush (Ns Flush) (06/18/17 18:00) Methylprednisolone So Succ Inj (Solumedr (06/18/17 18:00) Albuterol-Ipratropium Neb (Duoneb Neb) (06/18/17 18:00) CKMB (06/18/17 18:15) CKMB% (06/18/17 18:15) Labs Laboratory Tests Test 06/18/17 18:15 White Blood Count 9.7 TH/MM3 Red Blood Count 5.75 MIL/MM3 Hemoglobin 16.5 GM/DL Hematocrit 49.1 % Mean Corpuscular Volume 85.4 FL Mean Corpuscular Hemoglobin 28.8 PG Mean Corpuscular Hemoglobin 33.7 % Concent Red Cell Distribution Width 16.1 % Platelet Count 281 TH/MM3 Mean Platelet Volume 9.7 FL Neutrophils (%) (Auto) 67.7 % Lymphocytes (%) (Auto) 16.2 % Monocytes (%) (Auto) 10.3 % Eosinophils (%) (Auto) 5.0 % Basophils (%) (Auto) 0.8 % Neutrophils # (Auto) 6.5 TH/MM3 Lymphocytes # (Auto) 1.6 TH/MM3 Monocytes # (Auto) 1.0 TH/MM3 Eosinophils # (Auto) 0.5 TH/MM3 Basophils # (Auto) 0.1 TH/MM3 CBC Comment DIFF FINAL Differential Comment Prothrombin Time 10.7 SEC Prothromb Time International 1.0 RATIO Ratio Activated Partial 28.7 SEC Thromboplast Time Sodium Level 136 MEQ/L Potassium Level 4.8 MEQ/L Chloride Level 106 MEQ/L Carbon Dioxide Level 24.1 MEQ/L Anion Gap 6 MEQ/L Blood Urea Nitrogen 29 MG/DL Creatinine 1.89 MG/DL Estimat Glomerular Filtration 35 ML/MIN Rate Random Glucose 101 MG/DL Calcium Level 9.5 MG/DL Magnesium Level 2.3 MG/DL Total Creatine Kinase 125 U/L Creatine Kinase MB 4.0 NG/ML Troponin I LESS THAN 0.02 NG/ML B-Type Natriuretic Peptide 92 PG/ML MDM Medical Decision Making Medical Screen Exam Complete: Yes Emergency Medical Condition: Yes Medical Record Reviewed: Yes Interpretation(s) Last Impressions Chest X-Ray 06/18/17 0181 Signed Impressions: Service Date/Time: Sunday, June 18, 2017 18:28 - CONCLUSION: 1. No acute findings. Mild hyperinflation. No change from April 21. Berhane Hathaway MD Differential Diagnosis COPD exacerbation versus pneumonia versus ACS versus CHF versus URI Narrative Course 76-year-old male presents to the emergency department for worsening shortness breath, cough for the past 2 days history of COPD. He is a current tobacco user. EKG, CBC, BMP, magnesium, CK, troponin, BNP, PTT, PT/INR, chest x-ray are ordered and pending. Patient is given 5 [place] 125 mg IV, DuoNeb 3. Chest x-ray is ordered and pending. EKG shows SR, HR 76, no acute ST changes. CBC shows no acute abnormality. BMP shows BUN of 29, creatinine of 1.89. Magnesium is 2.3. CK is 125. Troponin is less than 0.02. BNP is 92. Coags are unremarkable. Chest x-ray shows no acute findings. Before I could discuss results with the patient or give him prescription, he left. I was unable to discuss results with him or give him any prescription for prednisone. Diagnosis Primary Impression: COPD (chronic obstructive pulmonary disease) Qualified Code: J44.1 - Chronic obstructive pulmonary disease with acute exacerbation Referrals: Primary Care Physician call for appointment Patient Instructions: COPD (Chronic Obstructive Pulmonary Disease) (ED), General Instructions Additional Instructions: Patient left before being discharged or before I could write prescription. Med/Other Pt SpecificInfo: No Change to Meds Disposition: 01 DISCHARGE HOME Condition: Stable CarterMary Jun 18, 2017 18:02
[2017-06-18] MEDS: RESP: ALBUTEROL 2.5 MG/IPRATROPIUM 0.5 MG NEB (SCH) INH (18:13)
[2017-06-18 18:50] VITALS: O2SAT 95
--- NOTE | 2017-06-18 18:50 | RADRPT ---
EXAM DATE/TIME: 06/18/2017 18:28 [facility] COMPARISON: CHEST SINGLE AP, April 21, 2017, 0:03. INDICATIONS : Cough, congestion, shortness of breath. MEDICAL HISTORY : Hypertension. Chronic obstructive pulmonary disease. Smoker. SURGICAL HISTORY : None. ENCOUNTER: Initial ACUITY: 2 days PAIN SCORE: 5/10 LOCATION: Bilateral chest FINDINGS: A single view of the chest demonstrates the lungs to be symmetrically aerated without evidence of mas s, infiltrate or effusion. The cardiomediastinal contours are unremarkable. Osseous structures are intact. CONCLUSION: 1. No acute findings. Mild hyperinflation. No change from April 21. Berhane Hathaway MD on June 18, 2017 at 18:48 Board Certified Radiologist. This report was verified electronically.
[2017-06-18 18:55] LABS: APTT (PATIENT) 28.7 SEC (24.3-30.1); PROTHROMBIN TIME - PATIENT 10.7 SEC (9.8-11.6)
[2017-06-18 19:06] LABS: AUTOMATED NEUTROPHIL # 6.5 TH/MM3 (1.8-7.7); BASOPHIL # 0.1 TH/MM3 (0-0.2); BASOPHIL % 0.8 % (0.0-2.0); EOSINOPHIL # 0.5 TH/MM3 (0-0.4); HEMATOCRIT 49.1 % (39.0-51.0); HEMO FLAGS DIFF FINAL; LYMPH % 16.2 % (9.0-44.0); LYMPHOCYTE # 1.6 TH/MM3 (1.0-4.8); MEAN CELL VOLUME 85.4 FL (80.0-100.0); MEAN CORPUSCULAR HEMOGLOBIN 28.8 PG (27.0-34.0); MEAN CORPUSCULAR HGB CONC 33.7 % (32.0-36.0); MONO % 10.3 % (0.0-8.0); NEUT % 67.7 % (16.0-70.0); PLATELET COUNT 281 TH/MM3 (150-450); RED BLOOD COUNT 5.75 MIL/MM3 (4.50-5.90); RED CELL DISTRIBUTION WIDTH 16.1 % (11.6-17.2); WHITE BLOOD COUNT 9.7 TH/MM3 (4.0-11.0)
[2017-06-18 19:10] LABS: ANION GAP 6 MEQ/L (5-15); BICARBONATE 24.1 MEQ/L (21.0-32.0); BLOOD UREA NITROGEN 29 MG/DL (7-18); CHLORIDE 106 MEQ/L (98-107); CREATINE KINASE 125 U/L (39-308); GLOMERULAR FILTRATION RATE 35 ML/MIN (>89); MAGNESIUM 2.3 MG/DL (1.5-2.5); SODIUM (NA) 136 MEQ/L (136-145)
[2017-06-18 19:16] LABS: POTASSIUM 4.8 MEQ/L (3.5-5.1)
[2017-06-18 19:21] VITALS: BP 165/88; PULSE 81; RESP 20; O2SAT 94
[2017-06-19] MEDS ORDERED: MEDR4PAK PO (02:53)
--- NOTE | 2017-06-19 16:46 | EKG ---
Date Performed: 06/18/2017 Time Performed: 18:12:27 PTAGE: 76 years EKG: Sinus rhythm VOLTAGE CRITERIA FOR LVH POSSIBLE SEPTAL MYOCARDIAL INFARCTION Borderline left axis deviation ABNORM AL ECG Since PREVIOUS TRACING , the R-wave progression in V2 and V3 is somewhat diminished. This may b e due to lead placement or change in body position that is not specific. PREVIOUS TRACIN05/10/2017 17.18 DOCTOR: Rolly Quintero Interpretating Date/Time 06/19/2017 16:45:05
== END 2017-06-18 20:24 | disposition home or self-care (01) ==
LOC: NEPD 17:21
DX: J44.1 Chronic obstructive pulmonary disease with (acute) exacerbation (principal); R07.9 Chest pain, unspecified; R94.31 Abnormal electrocardiogram [ECG] [EKG]; I10 Essential (primary) hypertension; Z72.0 Tobacco use; Z87.09 Personal history of other diseases of the respiratory system; Z86.59 Personal history of other mental and behavioral disorders; Z86.79 Personal history of other diseases of the circulatory system; Z87.19 Personal history of other diseases of the digestive system; Z86.69 Personal history of other diseases of the nervous system and sense organs
CPT/HCPCS: 71010; 80048; 82550; 82552; 83735; 83880; 84484; 85025; 85610; 85730; 93005; 94640; 94664; 96374; 99285; J2930

== ENCOUNTER 2017-06-18 23:10 | Emergency (ER) | payer OTHER, MEDICARE, MEDICAID ==
[~2017-06-18] VITALS: Ht 175.3 cm; Wt 60.5 kg
[2017-06-18 23:12] VITALS: BP 228/107; PULSE 87; RESP 16; TEMP 98.5; O2SAT 94
[2017-06-19 00:14] VITALS: BP 217/115; PULSE 82; RESP 26; O2SAT 95
[2017-06-19] MEDS ORDERED: RESP: ALBUTEROL 2.5 MG/IPRATROPIUM 0.5 MG NEB (SCH) NEB ONE (01:30)
--- NOTE | 2017-06-19 01:33 | PD ---
HPI Chief Complaint: Respiratory Distress Time Seen by Provider: 01:20 Travel History International Travel<30 days: No Contact w/Intl Traveler<30days: No Traveled to known affect area: No History of Present Illness HPI 76 year-old male complains of exacerbation of COPD and shortness of breath. Patient was here earlier on Wednesday evening with extensive workup for complaint of shortness of breath with values grossly within normal range chest x-ray revealing no acute process and EKG revealing no acute abnormality. Patient was being discharged but left prior to discharge instructions. Patient returns now stating that he feels like he still having shortness of breath. Patient has not used his rescue inhaler. Patient states he stopped smoking on Wednesday. Patient's had no fever chills nausea vomiting productive cough hemoptysis orthopnea PND or lower extremity pain or swelling. PFSH Past Medical History Narrative Medical COPD hypertension memory disturbance CVA AAA repair tobaccoism; nursing notes reviewed Asthma: Yes ("A LITTLE" PER PT) Blood Disorders: No Anxiety: Yes Depression: Yes Cancer: No Cardiovascular Problems: Yes (HTN) Chemotherapy: No Chest Pain: Yes (THIS ADMISSION CHEST AND BACK) COPD: Yes Cerebrovascular Accident: Yes (x2) Diabetes: No Diminished Hearing: No Endocrine: No Gastrointestinal Disorders: Yes Genitourinary: No Hiatal Hernia: Yes Hypertension: Yes Immune Disorder: No Inguinal Hernia: Yes (2006) Implanted Vascular Access Dvce: No Neurologic: Yes (MEMORY DEFICITS) Psychiatric: Yes Reproductive: No Respiratory: Yes (COPD, Asthma) Immunizations Current: Yes Radiation Therapy: No Sleep Apnea: No Tetanus Vaccination: < 5 Years Influenza Vaccination: Yes Past Surgical History Abdominal Aneurysm Repair: Yes (2002 [facility]) Abdominal Surgery: Yes (RIGHT INGUINAL HERNIA REPAIR 2006. "abdominal anerysm repair 10 yrs ago") Appendectomy: Yes Body Medical Devices: MEMORY PROBLEMS Neurologic Surgery: No Tonsillectomy: Yes Other Surgery: Yes (EXCISION OF CYSTS LEFT SHOULDER, AAA 2001) Social History Alcohol Use: No Tobacco Use: Yes Substance Use: No Allergies-Medications (Allergen,Severity, Reaction): Coded Allergies: No Known Allergies (Verified , 06/19/17) Reported Meds & Prescriptions Reported Meds & Active Scripts Active Medrol Dosepak (Methylprednisolone) 4 Mg Dspk 4 Mg PO DIRECTED Per Pharmacist direction Ventolin Hfa 18 GM Inh (Albuterol Sulfate) 90 Mcg/Act Aer 2 Puff INH Q4H PRN Symbicort Inh (Budesonide/Formoterol Fumarate) 80-4.5 Mcg/Act Aero 2 Puff INH Q12HR Reported Clonidine (Clonidine HCl) 0.1 Mg Tab 0.1 Mg PO BID Review of Systems Except as stated in HPI: all other systems reviewed are Neg General / Constitutional: No: Fever, Chills Eyes: No: Diploplia, Blurred Vision, Photophobia, Visual changes HENT: No: Headaches, Vertigo, Lightheadedness, Congestion, Neck Stiffness, Neck Pain Cardiovascular: No: Chest Pain or Discomfort Respiratory: Positive: Shortness of Breath, Wheezing Gastrointestinal: No: Vomiting, Abdominal Pain Genitourinary: No: Flank Pain Musculoskeletal: No: Myalgias, Arthralgias, Edema, Pain Skin: No Rash Neurologic: No: Weakness, Dizziness, Headache, Change in Mentation Psychiatric: Positive: Anxiety Hematologic/Lymphatic: No: Lymph Node Enlargement Physical Exam Narrative GENERAL: Well-developed well-nourished male in no acute distress no respiratory distress SKIN: Warm and dry. HEAD: Normocephalic. EYES: No scleral icterus. No injection or drainage. NECK: Supple, trachea midline. No JVD or lymphadenopathy. CARDIOVASCULAR: Regular rate and rhythm without murmurs, gallops, or rubs. RESPIRATORY: Breath sounds equal bilaterally mildly diminished few x-ray wheezes. No accessory muscle use. GASTROINTESTINAL: Abdomen soft, non-tender, nondistended. MUSCULOSKELETAL: No cyanosis, or edema. BACK: Nontender without obvious deformity. No CVA tenderness. Data Data Last Documented VS Vital Signs Date Time Temp Pulse Resp B/P Pulse Ox O2 Delivery O2 Flow Rate FiO2 06/19/17 04:47 77 18 180/93 100 Room Air 06/18/17 23:12 98.5 Orders Albuterol-Ipratropium Neb (Duoneb Neb) (06/19/17 01:30) Clonidine (Catapres) (06/19/17 03:00) MDM Medical Decision Making Medical Screen Exam Complete: Yes Emergency Medical Condition: Yes Medical Record Reviewed: Yes Differential Diagnosis Exacerbation COPD, CHF, PE, uncontrolled hypertension Narrative Course Patient was administered DuoNeb updraft had just received a dose of Solu-Medrol with evaluation earlier on Wednesday evening Patient identified to have hypertension and hypertensive blood pressures Patient administered clonidine 0.2 mg by mouth as states has not taken his clonidine since was not aware that he should not miss clonidine doses. Blood pressure show any evidence of response to clonidine patient has prescription for clonidine 0.1 mg twice daily is encouraged to be compliant with this medication to avoid rebound hypertension long discussion with patient regarding the need for taking this medication and risk for discontinuing it abruptly. Patient reports that he understands. Patient also encouraged to use his rescue inhaler and to follow-up with his primary care provider at the [place] on Wednesday. Patient will be given Medrol Dosepak. Diagnosis Primary Impression: COPD (chronic obstructive pulmonary disease) Qualified Code: J44.9 - Chronic obstructive pulmonary disease, unspecified COPD type Additional Impression: HTN (hypertension) Qualified Code: I10 - Essential hypertension Referrals: [facility] 2 days Patient Instructions: General Instructions Additional Instructions: Use rescue inhaler as prescribed as needed Take clonidine twice daily as prescribed avoid missing any doses to avoid rebound elevation of blood pressure Complete Medrol dosepak as prescribed Do not smoke cigarettes Follow-up with your [place] clinic provider Return to the emergency department for a concerns or change in condition Med/Other Pt SpecificInfo: Prescription(s) given Scripts Methylprednisolone Dosepak (Medrol Dosepak)4 Mg Dspk4 Mg PO DIRECTED #1 DSPK Ref 0 Per Pharmacist direction Prov:Imelda Nichols MD 06/19/17 Disposition: DISCHARGE HOME Condition: Stable Imelda Nichols MD Jun 19, 2017 01:33 Imelda Nichols MD Jun 19, 2017 01:33
[2017-06-19 02:49] VITALS: BP 206/109; PULSE 87; RESP 24; O2SAT 98
[2017-06-19] MEDS ORDERED: MEDR4PAK PO (02:53)
[2017-06-19] MEDS ORDERED: cloNIDine HCL 0.2 MG TAB PO ONE (03:00)
[2017-06-19 04:47] VITALS: BP 180/93; PULSE 77; RESP 18; O2SAT 100
== END 2017-06-19 05:38 | disposition home or self-care (01) ==
LOC: NEPC 23:10
DX: J44.9 Chronic obstructive pulmonary disease, unspecified (principal); I10 Essential (primary) hypertension; Z72.0 Tobacco use; Z86.59 Personal history of other mental and behavioral disorders; Z87.09 Personal history of other diseases of the respiratory system; Z86.79 Personal history of other diseases of the circulatory system; Z87.19 Personal history of other diseases of the digestive system; Z86.69 Personal history of other diseases of the nervous system and sense organs
CPT/HCPCS: 94664; 99283

== ENCOUNTER 2017-06-27 09:48 | Observation (INO) | payer OTHER, MEDICARE ==
[2017-06-27] VITALS (9 sets, daily range): BP systolic 154–233; BP diastolic 78–119; PULSE 78–92; RESP 18–24; TEMP 97.8–98.1; O2SAT 89–96
[~2017-06-27] VITALS: Ht 175.3 cm; Wt 60.5 kg
[~2017-06-27 09:48] MED LIST changes: +MEDR4PAK PO
[2017-06-27] MEDS ORDERED: RESP: ALBUTEROL 2.5 MG/IPRATROPIUM 0.5 MG NEB (SCH) ONE (09:58)
[2017-06-27] MEDS ORDERED: SODIUM CHLORIDE 0.9% FLUSH 10 ML FLUSH IVF PRN (10:00)
[2017-06-27] MEDS ORDERED: methylPREDNISolone SOD SUCC 125 MG/2 ML VIAL IVP ONE (10:00)
[2017-06-27] MEDS: RESP: ALBUTEROL 2.5 MG/IPRATROPIUM 0.5 MG NEB (SCH) INH ×2 (10:05→10:06)
--- NOTE | 2017-06-27 10:09 | PD ---
HPI Chief Complaint: Respiratory Symptoms Time Seen by Provider: 09:58 Travel History International Travel<30 days: No Contact w/Intl Traveler<30days: No Traveled to known affect area: No History of Present Illness HPI 76-year-old male complains of shortness of breath. Patient has history of COPD with frequent exacerbation. Patient states that the shortness breath is worse this morning. Patient has an albuterol inhaler at home that he has been using. Patient denies any fever chills. Patient states that he has mild dry cough.. Patient denies any chest pain. Patient states that he stopped smoking a week ago. Patient has history hypertension. Patient has history of abdominal aortic aneurysm repair in the past. PFSH Past Medical History Asthma: Yes ("A LITTLE" PER PT) Blood Disorders: No Anxiety: Yes Depression: Yes Cancer: No Cardiovascular Problems: Yes Chemotherapy: No Chest Pain: Yes (THIS ADMISSION CHEST AND BACK) COPD: Yes Cerebrovascular Accident: Yes (x2) Diabetes: No Diminished Hearing: No Endocrine: No Gastrointestinal Disorders: Yes Genitourinary: No Hiatal Hernia: Yes Hypertension: Yes Immune Disorder: No Inguinal Hernia: Yes (2006) Implanted Vascular Access Dvce: No Neurologic: Yes (MEMORY DEFICITS) Psychiatric: Yes Reproductive: No Respiratory: Yes Immunizations Current: Yes Radiation Therapy: No Sleep Apnea: No Past Surgical History Abdominal Aneurysm Repair: Yes (2002 [facility]) Abdominal Surgery: Yes (RIGHT INGUINAL HERNIA REPAIR 2006. "abdominal anerysm repair 10 yrs ago") Appendectomy: Yes Body Medical Devices: MEMORY PROBLEMS Neurologic Surgery: No Tonsillectomy: Yes Other Surgery: Yes (EXCISION OF CYSTS LEFT SHOULDER, [facility] 2001) Social History Alcohol Use: No Tobacco Use: Yes Substance Use: No Allergies-Medications (Allergen,Severity, Reaction): Coded Allergies: No Known Allergies (Verified , 06/27/17) Reported Meds & Prescriptions Reported Meds & Active Scripts Active Ventolin Hfa 18 GM Inh (Albuterol Sulfate) 90 Mcg/Act Aer 2 Puff INH Q4H PRN Symbicort Inh (Budesonide/Formoterol Fumarate) 80-4.5 Mcg/Act Aero 2 Puff INH Q12HR Reported Clonidine (Clonidine HCl) 0.1 Mg Tab 0.1 Mg PO BID Review of Systems General / Constitutional: No: Fever Eyes: No: Visual changes HENT: No: Headaches Cardiovascular: No: Chest Pain or Discomfort Respiratory: Positive: Shortness of Breath Gastrointestinal: No: Abdominal Pain Genitourinary: No: Dysuria Musculoskeletal: No: Pain Skin: No Rash Neurologic: No: Weakness Psychiatric: No: Depression Endocrine: No: Polydipsia Hematologic/Lymphatic: No: Easy Bruising Physical Exam Narrative GENERAL: Well-nourished, well-developed patient. SKIN: Focused skin assessment warm/dry. HEAD: Normocephalic. EYES: No scleral icterus. No injection or drainage. NECK: Supple, trachea midline. No JVD or lymphadenopathy. CARDIOVASCULAR: Regular rate and rhythm without murmurs, gallops, or rubs. RESPIRATORY: Patient has mild to moderate diffuse expiratory wheezes bilaterally. Few rhonchi at the bases. GASTROINTESTINAL: Abdomen soft, non-tender, nondistended. MUSCULOSKELETAL: No cyanosis, or edema. BACK: Nontender without obvious deformity. No CVA tenderness. Neurologic exam normal. Data Data Last Documented VS Vital Signs Date Time Temp Pulse Resp B/P Pulse Ox O2 Delivery O2 Flow Rate FiO2 06/27/17 10:06 85 21 203/100 93 Room Air 06/27/17 09:51 97.8 Orders Albuterol-Ipratropium Neb (Duoneb Neb) (06/27/17 09:58) Complete Blood Count With Diff (06/27/17 09:58) Comprehensive Metabolic Panel (06/27/17 09:58) B-Type Natriuretic Peptide (06/27/17 09:58) Act Partial Throm Time (Ptt) (06/27/17 09:58) Prothrombin Time / Inr (Pt) (06/27/17 09:58) Influenzae A/B Antigen (06/27/17 09:58) Iv Access Insert/Monitor (06/27/17 09:58) Electrocardiogram (06/27/17 09:58) Ecg Monitoring (06/27/17 09:58) Oximetry (06/27/17 09:58) Oxygen Administration (06/27/17 09:58) Chest, Single Ap (06/27/17 09:58) Sodium Chloride 0.9% Flush (Ns Flush) (06/27/17 10:00) Methylprednisolone So Succ Inj (Solumedr (06/27/17 10:00) Albuterol-Ipratropium Neb (Duoneb Neb) (06/27/17 10:00) Clonidine (Catapres) (06/27/17 10:45) Cefepime Inj (Maxipime Inj) (06/27/17 12:00) Azithromycin Inj (Zithromax Inj) (06/27/17 12:00) Labs Laboratory Tests Test 06/27/17 10:20 White Blood Count 12.3 TH/MM3 Red Blood Count 5.87 MIL/MM3 Hemoglobin 16.4 GM/DL Hematocrit 50.9 % Mean Corpuscular Volume 86.6 FL Mean Corpuscular Hemoglobin 28.0 PG Mean Corpuscular Hemoglobin 32.3 % Concent Red Cell Distribution Width 15.9 % Platelet Count 252 TH/MM3 Mean Platelet Volume 9.5 FL Neutrophils (%) (Auto) 78.9 % Lymphocytes (%) (Auto) 10.4 % Monocytes (%) (Auto) 8.0 % Eosinophils (%) (Auto) 2.0 % Basophils (%) (Auto) 0.7 % Neutrophils # (Auto) 9.7 TH/MM3 Lymphocytes # (Auto) 1.3 TH/MM3 Monocytes # (Auto) 1.0 TH/MM3 Eosinophils # (Auto) 0.2 TH/MM3 Basophils # (Auto) 0.1 TH/MM3 CBC Comment AUTO DIFF Differential Comment AUTO DIFF CONFIRMED Platelet Estimate NORMAL Platelet Morphology Comment NORMAL [place] Bodies PRESENT Acanthocytes 1+ Keratocytes Prothrombin Time 11.1 SEC Prothromb Time International 1.0 RATIO Ratio Activated Partial 24.1 SEC Thromboplast Time Sodium Level 139 MEQ/L Potassium Level 4.5 MEQ/L Chloride Level 104 MEQ/L Carbon Dioxide Level 25.0 MEQ/L Anion Gap 10 MEQ/L Blood Urea Nitrogen 34 MG/DL Creatinine 2.07 MG/DL Estimat Glomerular Filtration 31 ML/MIN Rate Random Glucose 101 MG/DL Calcium Level 9.4 MG/DL Total Bilirubin 0.8 MG/DL Aspartate Amino Transf 29 U/L (AST/SGOT) Alanine Aminotransferase 15 U/L (ALT/SGPT) Alkaline Phosphatase 111 U/L B-Type Natriuretic Peptide 59 PG/ML Total Protein 7.5 GM/DL Albumin 3.8 GM/DL MDM Medical Decision Making Medical Screen Exam Complete: Yes Emergency Medical Condition: Yes Interpretation(s) Last Impressions Chest X-Ray 06/27/17 1577 Signed Impressions: Service Date/Time: Tuesday, June 27, 2017 09:55 - CONCLUSION: Stable chest x-ray. Hyperinflation suggesting obstructive airways disease/emphysema. Jimbo Connolly MD 11:46 AM. CBC WBC 12.3. 78 neutrophil. CMP within normal limit. BNP 59 Differential Diagnosis Differential diagnosis including acute exacerbation COPD, bronchitis, pneumonia , PE, pneumothorax. Narrative Course 76-year-old male with shortness of breath. History of COPD. Albuterol with Atrovent unit dose treatment 3. Solu-Medrol 125 mg IV. Cefepime 1 g IV. Zithromax 500 mg IV. 11:53 AM. Reexamination patient states having shortness of breath and persistent dry cough. Diagnosis Primary Impression: COPD with acute exacerbation Additional Impression: Acute renal insufficiency Admitting Information Admitting Physician Requests: Trell Mills MD Jun 27, 2017 10:09
--- NOTE | 2017-06-27 10:22 | RADRPT ---
EXAM DATE/TIME: 06/27/2017 09:55 [facility] COMPARISON: CHEST PA & LAT, May 10, 2017, 16:57. CHEST SINGLE AP, June 18, 2017, 18:28. INDICATIONS : Short of breath MEDICAL HISTORY : Hypertension. Chronic obstructive pulmonary disease. SURGICAL HISTORY : None. ENCOUNTER: Initial ACUITY: 1 day PAIN SCORE: 0/10 LOCATION: chest FINDINGS: 2 AP views of the chest demonstrate a normal-sized cardiac silhouette with calcification of the aorta . Lungs are hyperinflated with flattening of the hemidiaphragms. No effusion, consolidation, or pneum othorax is identified. The bones and soft tissues demonstrate no acute finding. CONCLUSION: Stable chest x-ray. Hyperinflation suggesting obstructive airways disease/emphysema. Jimbo Connolly MD on June 27, 2017 at 10:19 Board Certified Radiologist. This report was verified electronically.
[2017-06-27 10:36] LABS: AUTOMATED NEUTROPHIL # 9.7 TH/MM3 (1.8-7.7); BASOPHIL # 0.1 TH/MM3 (0-0.2); BASOPHIL % 0.7 % (0.0-2.0); EOSINOPHIL # 0.2 TH/MM3 (0-0.4); HEMATOCRIT 50.9 % (39.0-51.0); LYMPH % 10.4 % (9.0-44.0); LYMPHOCYTE # 1.3 TH/MM3 (1.0-4.8); MEAN CELL VOLUME 86.6 FL (80.0-100.0); MEAN CORPUSCULAR HGB CONC 32.3 % (32.0-36.0); NEUT % 78.9 % (16.0-70.0); PLATELET COUNT 252 TH/MM3 (150-450); RED BLOOD COUNT 5.87 MIL/MM3 (4.50-5.90); RED CELL DISTRIBUTION WIDTH 15.9 % (11.6-17.2); WHITE BLOOD COUNT 12.3 TH/MM3 (4.0-11.0)
[2017-06-27 10:43] LABS: HEMO FLAGS AUTO DIFF
[2017-06-27 10:45] LABS: APTT (PATIENT) 24.1 SEC (24.3-30.1); PROTHROMBIN TIME - PATIENT 11.1 SEC (9.8-11.6)
[2017-06-27] MEDS ORDERED: cloNIDine HCL 0.1 MG TAB PO ONE (10:45)
[2017-06-27 10:58] LABS: ALKALINE PHOSPHATASE 111 U/L (45-117); ALT (GPT) 15 U/L (12-78); TOTAL BILIRUBIN ADULT 0.8 MG/DL (0.2-1.0)
[2017-06-27 11:07] LABS: ANION GAP 10 MEQ/L (5-15); AST (GOT) 29 U/L (15-37); BLOOD UREA NITROGEN 34 MG/DL (7-18); CHLORIDE 104 MEQ/L (98-107); GLOMERULAR FILTRATION RATE 31 ML/MIN (>89); POTASSIUM 4.5 MEQ/L (3.5-5.1); SODIUM (NA) 139 MEQ/L (136-145)
[2017-06-27 11:12] LABS: HOWELL-JOLLY BODIES PRESENT (NONE SEEN)
[2017-06-27 11:14] LABS: ACANTHOCYTES 1+ (NORMAL)
[2017-06-27 11:15] LABS: PLATELET ESTIMATE SMEAR NORMAL (NORMAL)
[2017-06-27 11:16] LABS: PLATELET MORPHOLOGY NORMAL (NORMAL); SCAN/DIFF AUTO DIFF CONFIRMED
[2017-06-27] MEDS ORDERED: AZITHROMYCIN INJ 500 MG in SODIUM CHLOR 0.9% 250 ML INJ 250 ML IV ONE (12:00)
[2017-06-27] MEDS ORDERED: CEFEPIME INJ 1,000 MG in SODIUM CHLORIDE 0.9% INJ 100 ML IV ONE (12:00)
--- NOTE | 2017-06-27 12:54 | HHI.HP ---
[facility] Service Family Medicine Primary Care Physician [facility] Admission Diagnosis Diagnoses: International Travel<30 Days: No Contact w/Intl Traveler<30days: No Known Affected Area: No History of Present Illness Berhane Rehman is a 76 year old man with a PMH of COPD and HTN who presents to the ED due to worsening SOB and cough since last night. Patient has a long- standing history of COPD with frequent visits here to the ED. He is seen at the [place] [facility], he states his last visit was about 3 weeks ago. He reports having run out of his albuterol and symbicort inhalers at home. He does not have home O2. He states he has felt SOB for about the past week and has had a cough for many weeks now. He believes his SOB and cough worsening sometime last night. Denies significant production with the cough. No purulent sputum. He does endorse a subjective fevers sometime within the past week. Patient is a difficult historian. He otherwise does not have any complaints. He denies chills , night sweats, headaches, visual changes, CP, abdominal pain, pain or swelling in lower extremities. Review of Systems Constitutional: COMPLAINS OF: Fever, DENIES: Chills, Change in appetite, Night Sweats Eyes: DENIES: Vision loss Respiratory: COMPLAINS OF: Cough, Shortness of breath, DENIES: Sputum production Cardiovascular: DENIES: Chest pain, Lower Extremity Edema Gastrointestinal: DENIES: Abdominal pain, Constipation, Diarrhea, Nausea, Vomiting Genitourinary: DENIES: Hematuria, Dysuria Neurologic: DENIES: Headache, Tremor Past Family Social History Past Medical History COPD HTN Depression Anxiety Past Surgical History Inguinal hernia repair AAA repair Allergies: Coded Allergies: No Known Allergies (Verified , 06/27/17) Family History Father: unspecified cancer Social History Tobacco: 1 PPD since age 14 Alcohol use: per EMR 1/2 pint a week of vodka; patient stated his last drink was about one month ago and denied any history of heavy drinking Illicit drug use: Annmarie 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 Normal speech. employment service specialist grossly intact. Motor grossly normal. SKIN: Warm and dry. No rashes or erythema. HEAD: Normocephalic. Atraumatic. EYES: EOMI. No scleral icterus. No injection or drainage. ENT: No nasal drainage. Moist mucous membranes. NECK: Supple, trachea midline. No JVD. CARDIOVASCULAR: Regular rate and rhythm without murmurs, rubs, or gallops. Peripheral pulses 2+. Capillary refill < 2 seconds. RESPIRATORY: Expiratory wheezing throughout. Fine bibasilar rales. No rhonchi. No accessory muscle use. GASTROINTESTINAL: Abdomen soft, moderate tenderness to palpation throughout, nondistended, normal BS. No organomegaly or masses. No rebound tenderness. No guarding. MUSCULOSKELETAL: No lower extremity edema. Normal range of motion. BACK: Nontender without obvious deformity. Laboratory Laboratory Tests Test 06/27/17 10:20 White Blood Count 12.3 Red Blood Count 5.87 Hemoglobin 16.4 Hematocrit 50.9 Mean Corpuscular Volume 86.6 Mean Corpuscular Hemoglobin 28.0 Mean Corpuscular Hemoglobin 32.3 Concent Red Cell Distribution Width 15.9 Platelet Count 252 Mean Platelet Volume 9.5 Neutrophils (%) (Auto) 78.9 Lymphocytes (%) (Auto) 10.4 Monocytes (%) (Auto) 8.0 Eosinophils (%) (Auto) 2.0 Basophils (%) (Auto) 0.7 Neutrophils # (Auto) 9.7 Lymphocytes # (Auto) 1.3 Monocytes # (Auto) 1.0 Eosinophils # (Auto) 0.2 Basophils # (Auto) 0.1 CBC Comment AUTO DIFF Differential Comment AUTO DIFF CONFIRMED Platelet Estimate NORMAL Platelet Morphology Comment NORMAL [place] Bodies PRESENT Acanthocytes 1+ Keratocytes Prothrombin Time 11.1 Prothromb Time International 1.0 Ratio Activated Partial 24.1 Thromboplast Time Sodium Level 139 Potassium Level 4.5 Chloride Level 104 Carbon Dioxide Level 25.0 Anion Gap 10 Blood Urea Nitrogen 34 Creatinine 2.07 Estimat Glomerular Filtration 31 Rate Random Glucose 101 Calcium Level 9.4 Total Bilirubin 0.8 Aspartate Amino Transf 29 (AST/SGOT) Alanine Aminotransferase 15 (ALT/SGPT) Alkaline Phosphatase 111 B-Type Natriuretic Peptide 59 Total Protein 7.5 Albumin 3.8 Date/Time Procedure Status Source Growth 06/27/17 10:30 Influenza Types A,B Antigen (TOSHIA) - Final Complete Nasal Washing NEGATIVE FOR FLU A AND B ANTIGEN.... Result Diagram: 06/27/17 1020 06/27/17 1020 Imaging Last 72 hours Impressions Chest X-Ray 06/27/17 0958 Signed Impressions: Service Date/Time: Tuesday, June 27, 2017 09:55 - CONCLUSION: Stable chest x-ray. Hyperinflation suggesting obstructive airways disease/emphysema. Jibmo Connolly MD Septic Shock Reassessment Heart: Regular rate and rhythm Lungs: Other (Expiratory wheezing throughout) Skin: Warm, Dry Peripheral Pulses: Bounding Right Radial Bounding Left Radial Bounding Right Dorsalis Pedis Bounding Left Dorsalis Pedis Bounding Right Posterior Tibial Bounding Left Posterior Tibial Capillary Refill: <2 seconds Assessment and Plan Assessment and Plan 76 year old man admitted with acute exacerbation of COPD Code Status Full code Discussed Condition With Dr. Dima White Problem List: (1) Sepsis Status: Acute Plan: Meets sepsis criteria on admission Plan as below (2) COPD with acute exacerbation Status: Acute Plan: - Given cefepime 1gm IV for pseudomonal coverage given frequent hospital visits and azithromycin 500 mg po in ED - Continue cefepime 2gm IV q12h for pseudomonal coverage until cultures negative , pharmacy consult given patient with AIDE - Continue azithromycin 500 mg po q24h - Solumedrol 60 mg IV q6h - Duonebs q4h - Albuterol q2h prn - Supplemental oxygen as needed to maintain O2 sats between 88-92% - Incentive spirometer to bedside - Monitor vitals, leukocytosis - Consult case management, appreciate assistance with patient possibly needing home O2 and obtaining a nebulizer at home (3) Acute renal insufficiency Status: Acute Plan: - Cr on admission 2.07; baseline unknown, Cr last nml on 09/2014 1.10 - May be acute on chronic - Continue to monitor renal function - IVF hydration with NS at 100 cc/hr - Avoid nephrotoxins - Monitor I/Os (4) Uncontrolled hypertension Status: Acute Plan: BP on admission 233/119 Patient reportedly takes clonidine 0.1 mg po bid at home Start amlodipine 5 mg po daily Clonidine 0.1 mg po q6h prn BP > 180/100 (5) Abdominal pain Status: Acute Plan: - Patient not complaining of abdominal pain on history - Diffuse moderate TTP on exam - Unclear etiology at this time, not suspecting anything acute based on symptomatology - Obtain flat and upright abdl x-rays - Pt last BM 2 days ago, give korey-colace 1 tab po bid (6) History of ETOH abuse Status: Acute Plan: CIWA protocol MV, folic acid, thiamine (7) Nutrition, metabolism, and development symptoms Status: Acute Plan: Fluids: NS at 100 cc/hr Electrolytes: WNL, continue to monitor and replete as necessary Nutrition: regular DVT ppx: b/l SCDs Physician Certification 2 Midnight Certification Type: Admission for Inpatient Services Order for Inpatient Services The services are ordered in accordance with Medicare regulations or non- Medicare payer requirements, as applicable. In the case of services not specified as inpatient-only, they are appropriately provided as inpatient services in accordance with the 2-midnight benchmark. Estimated LOS (days): 2 days is the estimated time the patient will need to remain in the hospital, assuming treatment plan goals are met and no additional complications. Post-Hospital Plan: Home Greg Ellis MD R2 Jun 27, 2017 12:54
[2017-06-27] MEDS ORDERED: ACETAMINOPHEN 325 MG TAB PO PRN (14:00)
[2017-06-27] MEDS: DOCUSATE SODIUM 50 MG/SENNA 8.6 MG TAB PO SCH ×2 (14:00→21:17)
[2017-06-27] MEDS ORDERED: NALOXONE HCL 0.4 MG/ML AMP IV PRN (14:00)
[2017-06-27] MEDS ORDERED: cloNIDine HCL 0.1 MG TAB PO PRN (14:00)
[2017-06-27] MEDS ORDERED: RESP: ALBUTEROL 2.5 MG/3 ML NEB (PRN) NEB (14:00)
[2017-06-27] MEDS ORDERED: SODIUM CHLORIDE 0.9% FLUSH 10 ML FLUSH IV FLUSH PRN (14:00)
[2017-06-27] MEDS ORDERED: Custom Consult Pharmacy 1 EA OTHER SCH (14:00)
[2017-06-27] MEDS: SODIUM CHLORIDE 0.9% FLUSH 10 ML FLUSH IV FLUSH SCH ×2 (14:00→21:00)
--- NOTE | 2017-06-27 14:16 | HHI.FPPN ---
Subjective Remarks Medicine attending note: 76-year-old gentleman admitted through the emergency room with shortness of breath. Patient has a long-time history of COPD having been a smoker since age 14 until what he describes as 2 weeks ago. Presented over the last week with increasing shortness of breath, sputum production of yellowish material, no hemoptysis. No chest pain. Patient sees Dr. Oropeza on the blue team at the [facility] and generally takes his Symbicort which she states helps significantly, albuterol rescue inhaler and clonidine 0.1 mg twice a day for his hypertension. Patient states he recently ran out of his breathing medications. Thinks that he is up-to-date with immunizations. Please refer to the resident's H&P for complete discussion of the presenting history. Objective Vitals Vital signs noted. Blood pressure initially 213/19 pulse 90 per minute and respirations 20 oxygen saturation 89%. Gen. appearance: Older gentleman who has evidence of weight loss, alert and pleasant in conversation. HEENT: TMs unremarkable, oral pharynx edentulous. No local lesions. Neck: No carotid bruits Lungs: Very hyperresonant to percussion, diminished breath sounds in all areas. Anteriorly some preserved but sounds minimal. Cardiac: S1-S2, no S3 appreciable murmurs. Abdomen: Prominent vertical midline surgical scar corresponding to previously per performed AAA repair. Patient does guard to palpation in multiple areas, specifically in the umbilical and right lateral abdomen. No rebound or referred , no definite masses, somewhat nonspecific response. Extremities: Evidence of weight loss, 2+ pedis pulse, patient reports pain on touching the skin of the lower extremities. Nonspecific. Labs reviewed. Chest [id number]. Vital Signs Date Time Temp Pulse Resp B/P Pulse Ox O2 Delivery O2 Flow Rate FiO2 06/27/17 12:21 78 19 172/90 94 Nasal Cannula 2 06/27/17 10:06 85 21 203/100 93 Room Air 06/27/17 10:06 85 21 203/100 93 Room Air 06/27/17 10:01 89 21 92 Room Air 06/27/17 10:01 93 Room Air 06/27/17 09:56 89 21 92 06/27/17 09:51 97.8 92 24 233/119 89 I/O 8/5/17 8/506/26/17 06/27/17 06/27/17 06/27/17 07:00 15:00 23:00 07:00 15:00 23:00 Intake Total 350 ml Balance 350 ml Intake IV Total 350 ml Result Diagram: 06/27/17 1020 06/27/17 1020 A/P Assessment and Plan Clinical assessment: 76-year-old gentleman admitted through the emergency room a shortness of breath, relative hypoxia. Nonspecific abdominal pain. Leukocytosis of 12.5, laboratory and past medical history consistent with chronic kidney disease. Appears to have a significant decrease in renal function 2013. History of hypertension with exacerbation on admission. Patient seen and examined. Case reviewed and discussed with resident team. Agree with plan of care as discussed with me and documented in the resident note. Attending Attestation The patient has been seen and examined. The chart and all resident notes have been reviewed. I agree that inpatient care is appropriate and that a two midnight stay is expected for the reasons documented in the resident history and physical. I have discussed this with the resident and certify the resident s order for inpatient admission. Clive Ch MD Jun 27, 2017 14:16
[2017-06-27] MEDS: RESP: ALBUTEROL 2.5 MG/IPRATROPIUM 0.5 MG NEB (SCH) NEB ×4 (14:27→23:12)
[2017-06-27] MEDS: SODIUM CHLOR 0.9% 1000 ML INJ 1,000 ML IV SCH (15:09)
[2017-06-27] MEDS: HEPARIN SODIUM - SQ 10,000 UNITS/ML VIAL SQ SCH (15:09)
[2017-06-27] MEDS: amLODIPine BESYLATE 5 MG TAB PO SCH (15:09)
[2017-06-27] MEDS: methylPREDNISolone SOD SUCC 125 MG/2 ML VIAL IV PUSH SCH ×2 (15:10→21:17)
--- NOTE | 2017-06-27 15:20 | RADRPT ---
EXAM DATE/TIME: 06/27/2017 14:45 [facility] COMPARISON: No previous studies available for comparison. INDICATIONS : Abdominal pain. MEDICAL HISTORY : Aneurysm, abdominal. SURGICAL HISTORY : Abdominal aortic aneurysm repair. ENCOUNTER: Initial ACUITY: 1 day PAIN SCORE: 10 LOCATION: abdomen. FINDINGS: Supine and upright views of the abdomen were performed. The abdominal bowel gas pattern is normal. No air fluid levels are seen. No abnormal masses, calcifications, or organomegaly is seen. The visu alized lower lungs are clear. No evidence of free intraperitoneal gas. The osseous structures are u nremarkable. Previous ventral hernia repair. CONCLUSION: Benign-appearing abdomen. No obstruction. Jimbo Correia MD on June 27, 2017 at 15:18 Board Certified Radiologist. This report was verified electronically.
[2017-06-27] MEDS ORDERED: FLUMAZENIL 0.5 MG/5 ML VIAL IV PUSH PRN (16:00)
[2017-06-27] MEDS ORDERED: LORazepam 1 MG TAB PO PRN (16:00)
[2017-06-27] MEDS ORDERED: LORazepam 2 MG/ML VIAL IV PUSH PRN ×4 (16:00)
[2017-06-27] MEDS ORDERED: LORazepam 2 MG TAB PO PRN (16:00)
--- NOTE | 2017-06-27 17:24 | EKG ---
Date Performed: 06/27/2017 Time Performed: 10:08:30 PTAGE: 76 years EKG: Sinus rhythm MODERATE VOLTAGE CRITERIA FOR LVH, CONSIDER NORMAL VARIANT NONSPECIFIC ST & T-WAVE ABNORMALITY CATRACHO KATZ ECG Since PREVIOUS TRACING , no significant change noted PREVIOUS TRACIN06/18/2017 18.12 DOCTOR: Pat Padgett Interpretating Date/Time 06/27/2017 17:22:55
[2017-06-27] MEDS: THIAMINE HCL 100 MG TAB PO SCH (18:24)
[2017-06-27] MEDS: FOLIC ACID 1 MG TAB PO SCH (18:24)
[2017-06-27] MEDS: MULTIVITAMINS/MINERALS THERAPEUTIC TAB PO SCH (18:24)
[2017-06-27 18:57] LABS: BLOOD, URINE MOD (NEG); COMMENT (UR) CULT NOT INDICATED; CULTURE IF INDICATED CULT NOT INDICATED; GLUCOSE,URINE 300 mg/dL (NEG); KETONE, URINE TRACE mg/dL (NEG); MUCUS URINE FEW /lpf (OCC); NITRITE,URINE NEG (NEG); SQUAMOUS EPITHELIAL CELL URINE 1 /hpf (0-5); URINE COLOR YELLOW (YELLW/STRAW)
[2017-06-28] VITALS (8 sets, daily range): BP systolic 161–177; BP diastolic 76–86; PULSE 78–103; RESP 17–21; TEMP 97.9–98.6; O2SAT 94–96
[2017-06-28] MEDS: CEFEPIME INJ 2,000 MG in SODIUM CHLORIDE 0.9% INJ 100 ML IV SCH ×2 (01:05→12:00)
[2017-06-28] MEDS: SODIUM CHLOR 0.9% 1000 ML INJ 1,000 ML IV SCH ×2 (01:50→09:54)
[2017-06-28] MEDS: HEPARIN SODIUM - SQ 10,000 UNITS/ML VIAL SQ SCH ×2 (02:00→15:00)
[2017-06-28] MEDS: RESP: ALBUTEROL 2.5 MG/IPRATROPIUM 0.5 MG NEB (SCH) NEB ×4 (03:12→15:53)
[2017-06-28] MEDS: methylPREDNISolone SOD SUCC 125 MG/2 ML VIAL IV PUSH SCH ×4 (04:02→16:00)
[2017-06-28] MEDS: SODIUM CHLORIDE 0.9% FLUSH 10 ML FLUSH IV FLUSH SCH (09:05)
[2017-06-28] MEDS: amLODIPine BESYLATE 5 MG TAB PO SCH (09:05)
[2017-06-28] MEDS: FOLIC ACID 1 MG TAB PO SCH (09:05)
[2017-06-28] MEDS: MULTIVITAMINS/MINERALS THERAPEUTIC TAB PO SCH (09:05)
[2017-06-28] MEDS: DOCUSATE SODIUM 50 MG/SENNA 8.6 MG TAB PO SCH (09:05)
[2017-06-28] MEDS: THIAMINE HCL 100 MG TAB PO SCH (09:06)
[2017-06-28] MEDS ORDERED: AZITHROMYCIN 250 MG TAB PO SCH (12:00)
--- NOTE | 2017-06-28 13:26 | HHI.FF ---
Face to Face Verification Diagnosis: (1) COPD (chronic obstructive pulmonary disease) Physical Therapy Order: Evaluate and Treat, Improve ambulation I have seen patient Berhane Rehman on 06/28/17. My clinical findings support the need for the requested home health care services because: Ltd mobility - disease progression Patient has SOB Deconditioned w/ increased weakness Med compliance is questionable Limited ability to care for self High risk of falls I certify that my clinical findings support that this patient is homebound because: Hx COPD- exertion dyspnea/weakness Unsteady gait/balance Bre White MD R1 Jun 28, 2017 13:25
--- NOTE | 2017-06-28 13:27 | HHI.DCPOC ---
Discharge Care Plan Diagnosis: (1) COPD (chronic obstructive pulmonary disease) (2) HTN (hypertension) Goals to Promote Your Health * To prevent worsening of your condition and complications * To maintain your health at the optimal level Directions to Meet Your Goals Take your medications as prescribed Follow your dietary instruction Follow activity as directed Keep your appointments as scheduled Take your immunizations and boosters as scheduled If your symptoms worsen call your PCP, if no PCP go to Urgent Care Center or Emergency Room Smoking is Dangerous to Your Health. Avoid second hand smoke Call the 24-hour hour crisis hotline for domestic abuse at Bre White MD R1 Jun 28, 2017 13:26 Bre White MD R1 Jun 28, 2017 13:26
[2017-06-28] MEDS ORDERED: SYMB80AE INH (13:31)
[2017-06-28] MEDS ORDERED: VENTAER INH (13:31)
[2017-06-28] MEDS ORDERED: AZIT250T3 PO (13:31)
[2017-06-28] MEDS ORDERED: CLON0.1T PO (13:31)
[2017-06-28] MEDS ORDERED: PRED20 PO (13:31)
--- NOTE | 2017-06-28 13:59 | HHI.FPPN ---
Subjective Remarks No acute events overnight. Pt lying in bed, NC wasn't properly inserted in nose. Pt was breathing okay on room air. Pt has tendency to wander around per nurse. He was inquiring about breakfast this AM. Also complaining of coughing.Denies wheezing, CP, SOB, and N/V. (Bre White MD R1) Objective Vitals Vital Signs Date Time Temp Pulse Resp B/P Pulse Ox O2 Delivery O2 Flow Rate FiO2 06/28/17 11:29 98.6 87 20 161/84 95 06/28/17 07:39 95 Nasal Cannula 2.00 06/28/17 07:28 97.9 78 17 177/79 94 06/28/17 03:14 98.6 86 18 169/85 96 06/28/17 00:02 98.6 84 18 175/86 96 06/27/17 19:55 98.1 88 18 154/78 96 06/27/17 19:30 96 Nasal Cannula 2.00 06/27/17 15:45 98.1 89 20 158/88 95 06/27/17 15:00 84 19 171/90 95 Nasal Cannula 2 06/27/17 14:30 94 Nasal Cannula 2.00 I/O 06/27/17 06/27/17 06/27/17 06/28/17 06/28/17 06/28/17 07:00 15:00 23:00 07:00 15:00 23:00 Intake Total 350 ml Balance 350 ml Intake IV Total 350 ml (Bre White MD R1) Result Diagram: 06/27/17 1020 06/27/17 1020 Imaging Last Impressions Chest X-Ray 06/27/17 0958 Signed Impressions: Service Date/Time: Tuesday, June 27, 2017 09:55 - CONCLUSION: Stable chest x-ray. Hyperinflation suggesting obstructive airways disease/emphysema. Jimbo Connolly MD Abdomen X-Ray 06/27/17 0000 Signed Impressions: Service Date/Time: Tuesday, June 27, 2017 14:45 - CONCLUSION: Benign- appearing abdomen. No obstruction. Jimbo Correia MD Objective Remarks GENERAL: Breathing comfortably, frequently coughing, sounding wet but nonproductive NEURO: Alert. Normal speech. supervisor taping grossly intact. Motor grossly normal. SKIN: Warm and dry. No rashes or erythema. HEAD: Normocephalic. Atraumatic. EYES: EOMI. No scleral icterus. No injection or drainage. ENT: No nasal drainage. Moist mucous membranes. NECK: Supple, trachea midline. No JVD. CARDIOVASCULAR: Regular rate and rhythm without murmurs, rubs, or gallops. Peripheral pulses 2+. Capillary refill < 2 seconds. RESPIRATORY: Expiratory wheezing throughout. Fine bibasilar rales. No rhonchi. No accessory muscle use. GASTROINTESTINAL: Abdomen soft, moderate tenderness to palpation throughout, nondistended, normal BS. No organomegaly or masses. No rebound tenderness. No guarding. MUSCULOSKELETAL: No lower extremity edema. Normal range of motion. BACK: Nontender without obvious deformity. (Bre White MD R1) A/P Assessment and Plan 76 year old man admitted with acute exacerbation of COPD Discharge Planning Home health PT (Bre White MD R1) Attending Attestation Patient seen and examined. Case reviewed and discussed with the resident team. Agree with plan as discussed with me and documented in the resident note. ( Clive Ch MD) Problem List: (1) Sepsis Status: Acute Plan: Meets sepsis criteria on admission Plan as below (2) COPD with acute exacerbation Status: Acute Plan: - Given cefepime 1gm IV for pseudomonal coverage given frequent hospital visits and azithromycin 500 mg po in ED - Continue cefepime 2gm IV q12h for pseudomonal coverage until cultures negative , pharmacy consult given patient with AIDE - Continue azithromycin 500 mg po q24h - Solumedrol 60 mg IV q6h - Duonebs q4h - Albuterol q2h prn - Supplemental oxygen as needed to maintain O2 sats between 88-92% - Incentive spirometer to bedside - Monitor vitals, leukocytosis - Consult case management, appreciate assistance with patient possibly needing home O2 and obtaining a nebulizer at home (3) Acute renal insufficiency Status: Acute Plan: - Cr on admission 2.07; baseline unknown, Cr last nml on 09/2014 1.10 - May be acute on chronic - Continue to monitor renal function - IVF hydration with NS at 100 cc/hr - Avoid nephrotoxins - Monitor I/Os (4) Uncontrolled hypertension Status: Acute Plan: BP on admission 233/119 Patient reportedly takes clonidine 0.1 mg po bid at home Continue amlodipine 5 mg po daily Clonidine 0.1 mg po q6h prn BP > 180/100 (5) Abdominal pain Status: Acute Plan: - Patient not complaining of abdominal pain on history - Diffuse moderate TTP on exam - Unclear etiology at this time, not suspecting anything acute based on symptomatology - Abdominal x-ray showed no obstruction - Pt last BM 2 days ago, give korey-colace 1 tab po bid (6) History of ETOH abuse Status: Acute Plan: CIWA protocol MV, folic acid, thiamine (7) Nutrition, metabolism, and development symptoms Status: Acute Plan: Fluids: NS at 100 cc/hr Electrolytes: WNL, continue to monitor and replete as necessary Nutrition: regular DVT ppx: b/l SCDs (Bre White MD R1) Bre White MD R1 Jun 28, 2017 13:59 Clive Ch MD Jun 28, 2017 18:08
[2017-06-28] MEDS ORDERED: guaiFENesin SOLUTION 200 MG/10 ML CUP PO PRN (14:00)
[2017-06-28] MEDS ORDERED: OXYGENDME NAS.CANULA ×2 (15:15→16:44)
== END 2017-06-28 20:28 | disposition home or self-care (01) ==
LOC: NEPC 09:48 → NEDA 13:21 → INTOOBSV 13:21 → NEPGCP 15:59
PROVIDERS: ADMIT Family Medicine; ATTEND Family Medicine
DX: J44.1 Chronic obstructive pulmonary disease with (acute) exacerbation (principal); N17.9 Acute kidney failure, unspecified; R05 Cough; R06.02 Shortness of breath; F17.210 Nicotine dependence, cigarettes, uncomplicated; I10 Essential (primary) hypertension; R10.9 Unspecified abdominal pain
CPT/HCPCS: 71010; 74020; 80053; 81001; 83880; 85025; 85610; 85730; 87070; 87205; 87804; 93005; 94150; 94620; 94640; 94664; 96361; 96365; 96368; 96372; 96375; 96376; 97161; 99285; G0378; G8987; G8988; J0456; J0692; J1644; J2930; J7030; J7050

== ENCOUNTER 2017-07-06 20:28 | Emergency (ER) | payer OTHER, MEDICARE ==
[~2017-07-06 20:28] MED LIST changes: +AZIT250T3 PO; -MEDR4PAK PO; +OXYGENDME NAS.CANULA; +PRED20 PO
[2017-07-06 20:30] VITALS: BP 194/105; PULSE 88; RESP 16; TEMP 98.4; O2SAT 94
== END 2017-07-06 21:45 | disposition left against medical advice (07) ==
LOC: NED 20:28
DX: R05 Cough (principal)
CPT/HCPCS: 99281